=== PATIENT | male | born 1980 | race Two or more races ===

== ENCOUNTER → 2021-06-14 08:29 | Outpatient (BNVA) | payer SELFPAY | PROVIDERS: PCP Internal Medicine; Visit Provider Physician Assistant Medical | DX: Z02.79 Encounter for issue of other medical certificate (principal) ==

== ENCOUNTER → 2021-07-06 07:03 | Outpatient (REF) | payer OTHER, SELFPAY ==
--- NOTE | 2021-07-06 09:09 | HM_ITS ---
Total monitoring time 6 days and 23 hours. Underlying rhythm is sinus. Minimum heart rate 35/Min. Maximum 183/Min. Average 75/Min. Bradycardia 3.8%. Tachycardia 13.26%. No atrial fibrillation or flutter. No AV blocks or pauses. Very rare supraventricular ectopy with a burden of less than 0.01%. No patient events. MTDD
[2021-07-06 10:09] LABS: HIV AB/AG Nonreactive (Nonreactive); HIV Num 1 0.04 S/CO (0.00-0.99)
[2021-07-06 10:22] LABS: Syphilis Screen Nonreactive (Nonreactive)
== END ==
LOC: HO.CARD 07:03
PROVIDERS: PCP Internal Medicine; Visit Provider Internal Medicine
DX: R00.1 Bradycardia, unspecified (principal); R82.90 Unspecified abnormal findings in urine
CPT/HCPCS: 36415; 86780; 87389; 93242

== ENCOUNTER 2021-08-11 02:47 | Emergency (ER) | payer OTHER, SELFPAY ==
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
--- NOTE | ~2021-08-11 | XR_ITS ---
EXAMINATION: XR HAND, RIGHT CLINICAL INFORMATION: Thumb pain COMPARISON: None TECHNIQUE: PA, lateral, and oblique views of the right hand. FINDINGS: Osseous alignment is anatomic. No acute fracture is seen. No significant focal soft tissue abnormality identified. XR/XR hand RT 2V IMPRESSION: No acute findings identified.
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
[2021-08-11 02:51] VITALS: BP 131/85; PULSE 92; RESP 16; TEMP 36.6; O2SAT 100; BMI 32.0
[2021-08-11 02:55] VITALS: BP 127/81; PULSE 88; O2SAT 100
[2021-08-11 02:57] LABS: Glucose, Whole Blood 106 mg/dL (60-115)
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
[2021-08-11] MEDS: Ibuprofen 600 MG TABLET PO (03:49)
[2021-08-11 05:27] VITALS: BP 99/61; PULSE 63; RESP 16; O2SAT 98
== END 2021-08-11 05:43 | disposition home or self-care (01) ==
PROVIDERS: Emergency Provider Emergency Medicine; PCP Internal Medicine
DX: S10.93XA Contusion of unspecified part of neck, initial encounter (principal); G44.309 Post-traumatic headache, unspecified, not intractable; M54.2 Cervicalgia; M79.641 Pain in right hand; F12.90 Cannabis use, unspecified, uncomplicated; V43.52XA Car driver injured in collision with other type car in traffic accident, initial encounter; Y93.9 Activity, unspecified; Y92.410 Unspecified street and highway as the place of occurrence of the external cause; Y99.9 Unspecified external cause status; Z79.899 Other long term (current) drug therapy; Z87.891 Personal history of nicotine dependence
CPT/HCPCS: 70450; 72125; 73120; 82947; 99284

== ENCOUNTER → 2021-08-14 09:12 | Outpatient (BNVA) | payer OTHER, SELFPAY | PROVIDERS: PCP Internal Medicine; Referring Provider Internal Medicine; Visit Provider Internal Medicine | DX: G47.33 Obstructive sleep apnea (adult) (pediatric) (principal); R00.1 Bradycardia, unspecified; R53.83 Other fatigue; Z99.89 Dependence on other enabling machines and devices | CPT/HCPCS: 93005 ==

== ENCOUNTER 2024-06-22 14:28 | Outpatient (AMB) | payer OTHER, SELFPAY ==
[2024-06-22 14:36] VITALS: BP 118/74; PULSE 74; O2SAT 98; BMI 35.1
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
== END 2024-06-22 14:59 | disposition home or self-care (01) ==
PROVIDERS: PCP Internal Medicine; Visit Provider Nurse Practitioner Family
DX: M25.512 Pain in left shoulder (principal)
CPT/HCPCS: 99214

== ENCOUNTER 2024-06-22 15:03 | Outpatient (REF) | payer OTHER, SELFPAY ==
--- NOTE | ~2024-06-22 | XR_ITS ---
EXAMINATION: XR SHOULDER, LEFT CLINICAL INFORMATION: Left shoulder pain. COMPARISON: Left shoulder radiographs dated 01/18/2013. TECHNIQUE: AP external rotation, Grashey, scapular Y, and axillary views of the left shoulder. FINDINGS: Moderate acromioclavicular joint space narrowing with marginal osteophytes, new when compared to the prior examination. No glenohumeral joint space narrowing or marginal osteophytes. No fracture or dislocation. No osseous erosion. No abnormal soft tissue calcification. XR/XR shoulder LT min 2V IMPRESSION: Moderate acromioclavicular osteoarthritis, new when compared to the prior examination. Electronically signed by: Seth Rivera MD 06/28/2024 09:51 PM EDT
== END 2024-06-22 15:04 | disposition home or self-care (01) ==
LOC: HO.XRAY 15:03
PROVIDERS: PCP Internal Medicine; Visit Provider Nurse Practitioner Family
DX: M25.512 Pain in left shoulder (principal)
CPT/HCPCS: 73030

== ENCOUNTER 2024-07-02 10:32 | Outpatient (AMB) | payer OTHER, SELFPAY ==
[2024-07-02 10:40] VITALS: BP 126/78; PULSE 80; O2SAT 98; BMI 34.5
--- NOTE | 2024-07-02 10:40 | MHC.PC.OV ---
Vital Signs 07/02/24 10:40 Height 5 ft 9 in Weight 233 lb 6 oz BMI 34.5 BP 126/78 Blood Pressure Location Lt brachial Position Sitting Pulse 80 Pulse Source Pulse Oximeter Pulse Oximetry (%) 98 Oxygen Delivery Method Room Air Intake Visit Reasons: EDF [facility] 06/25 Shoulder Pain House Steward/Stewardess Required: No Accompanied by: Self / Same As Patient Allergies N.K.D.A. Allergy (Unknown, Uncoded 07/02/24 10:45) n/a Tobacco use date assessed: 06/22/24 Dental Screening Dental Screen Date: 06/22/24 HPI HPI Comments History of Present Illness Details 43 y/o male patient who presents to the clinic for ED follow up. Pt was admitted again at [facility] 06/25/24 and sicharged home the same day. Pt has been c/o persistent left shoulder pain radiating down to his hand associated with numbness/tingling of his left Index/middle fingers. I saw the patient 06/22/24 for ED follow up due to this left shoulder. He was given NSAIDs, Acetaminophen, Flexeril and Lido patches. Reports that the only thing that works in reducing his pain are the Lido patches. NSAIDs and Acetaminophen not helping at all. Flexeril has been helpful in assisting with sleeping at night time. PT referral was placed by me 06/22/24, so will f/u on this today. Discussed pain management and Orthopedics referrals. [facility] Medical History Moderate asthma Surgical History No pertinent past surgical history Family History Father No problems noted. Mother No problems noted. Social History Housing: Apartment Alcohol intake: never Patient Tobacco Use Status: Former Tobacco user Tobacco use type: Cigarette e-Cigarette/Vaping Use: Never Used Second Hand Smoke Exposure: No Substance Use Type: Marijuana service: No Current occupational status: employed Current occupational exposures/hazards: No Cognitive needs: No Hearing needs: No Vision needs: No (may need a referral) Questionnaire Thrive Questionnaire Date Thrive assessed: 06/22/24 CALIXTO-7 AMB Questionnaire CALIXTO-7 Date CALIXTO - 7 assessed: 06/22/24 Source: Developed by Drs. Robert White, Kandi Gee, Bhavin Arora and colleagues, with an educational jacqueline from [employer]. Physical exam (Primary Care) Vital Signs: Last Vital Signs Pulse 80 07/02/24 10:40 BP 126/78 07/02/24 10:40 Pulse Ox 98 07/02/24 10:40 Oxygen Delivery Method Room Air 07/02/24 10:40 BMI result Body Mass Index 34.5 Tobacco/Smoking Status: Tobacco use Status Tobacco use date assessed 06/22/24 07/02/24 10:44 Patient Tobacco Use Status Former Tobacco user 07/02/24 10:44 Tobacco use type Cigarette 07/02/24 10:44 e-Cigarette/Vaping Use Never Used 07/02/24 10:44 Thrive Assessment: Date of Thrive Assessment Date Thrive assessed 06/22/24 07/02/24 10:44 Const General: cooperative and no acute distress; No comfortable Nutritional Appearance: obese Orientation/consciousness: patient oriented x3 Neuro General: patient oriented x3, gait normal and moves all extremities Extrem Right upper extremity: normal to inspection and full ROM Left upper extremity: shoulder/upper arm Details: tenderness, axillary nerve sensory function normal and abnormal ROM Details: pain with active ROM and pain with passive ROM; no swelling, no ecchymosis and no crepitus and hand Details: normal to inspection, normal capillary refill, neuromotor exam normal, normal ROM of fingers and no swelling; no crepitus Psych Speech and movement: Normal speech and movement present Assessment and Plan Assessment & Plan (1) Osteoarthritis of left shoulder: Code(s): M19.012 - Primary osteoarthritis, left shoulder Qualifiers: Osteoarthritis type: primary Qualified Code(s): M19.012 - Primary osteoarthritis, left shoulder Plan: Ordered more Lidocaine patches Ordered Gabapentin 100 mg TID Will f/u on PT referral status Ordered referral for Pain management and Orthopedics. Ordered diclofenac, do not take together with Ibuprofen. Orders: Referrals Orthopedics Referral M19.012 - Primary osteoarthritis, left shoulder Pain Management Referral M19.012 - Primary osteoarthritis, left shoulder Medications: New lidocaine 5% leave on most painful area for up to 12 hrs 1 patch topical DAILY 30 ea 1RF M19.012 - Primary osteoarthritis, left shoulder gabapentin 100 mg PO TID 90 caps 0RF M19.012 - Primary osteoarthritis, left shoulder diclofenac potassium 50 mg PO DAILY 30 tabs 1RF M19.012 - Primary osteoarthritis, left shoulder Refilled acetaminophen 1,000 mg (2 x 500 mg) PO Q6H PRN 90 caps 1RF pain M25.512 - Pain in left shoulder Discontinued cyclobenzaprine Discontinued Reason: Patient no longer taking 10 mg PO BEDTIME 14 tabs 0RF M25.512 - Pain in left shoulder ibuprofen Discontinued Reason: Patient Completed Course 800 mg PO Q8H 60 tabs 0RF Pain M25.512 - Pain in left shoulder Coding Level of Care Code Est Pt Level 4 (28240) Diagnoses Primary osteoarthritis of left shoulder M19.012 Osteoarthritis type: primary Time Spent (min) 20 Comment Spent on reviewing notes, placing referral and patient education
== END 2024-07-02 11:10 | disposition home or self-care (01) ==
PROVIDERS: PCP Internal Medicine; Visit Provider Nurse Practitioner Family
DX: M19.012 Primary osteoarthritis, left shoulder (principal)
CPT/HCPCS: 99214

== ENCOUNTER 2024-09-15 10:46 | Outpatient (AMB) | payer OTHER, SELFPAY ==
--- NOTE | 2024-09-15 10:55 | A.OFFPC_ITS ---
Vital Signs 09/15/24 10:56 Height 5 ft 9 in Weight 230 lb BMI 34.0 BP 110/70 Blood Pressure Location Lt brachial Position Sitting Intake Visit Reasons: annual Intake Note: Patient here for a physical exam Car Pre Cooler Required: No Accompanied by: Self / Same As Patient Allergies N.K.D.A. Allergy (Unknown, Uncoded 09/15/24 11:19) n/a Medication List - Last Reconciled 09/15/24 by Amy Whyte MD albuterol sulfate 90 mcg/actuation 2 puffs inhalation Q6H PRN 30 days diclofenac potassium 50 mg PO DAILY lidocaine 5% 1 patch topical DAILY Tobacco use date assessed: 06/22/24 Dental Screening Dental Screen Date: 09/15/24 Did you have a dental visit in the last 12 months?: No Did you have a dental problem in the last 6 months where you did not have access to dental care?: No Was dental information given to patient?: Patient has dentist HPI HPI Comments History of Present Illness Details The patient is a 44-year-old male presenting for an annual physical examination. During the visit, he mentioned no medication allergies and confirmed the use of a daily asthma inhaler approximately three to four times, indicating uncontrolled symptoms. He has a previous history of shoulder pain for which he received a cortisone injection and attended physical therapy. The patient reported numbness in the shoulder area over the past two days and was instructed to follow up with physical therapy. His medication regimen includes diclofenac for pain management. The patient has a family history significant for colon cancer on the maternal side (grandmother) and cancer of unspecified type in the aunt, motivating his interest in a colonoscopy for cancer screening. He actively consumes alcohol, specifically hard liquor, at a frequency of approximately four times a week with a daily average consumption of three drinks. He also reported previous utilization of Neosporin for skin lesions, which have now resolved, although he expressed a desire to consult a running instructor in case of recurrence. The patient has expressed interest in an STD check, inquiring about his status as part of routine disease prevention. - Colonoscopy screening recommendation d iscussed due to family history of colon cancer. - Inquiry about flu vaccination; the pat ient declined. - Interest expressed in sexually transmi tted disease screening. [facility] Medical History (Updated 09/16/24 @ 09:40 by Amy Whyte MD) Fracture of transverse process of lumbar vertebra Skin lesion Physical exam Class 1 obesity with body mass index (BMI) of 33.0 to 33.9 in adult MARCIANO on CPAP Bradycardia Urine abnormality Moderate asthma Mild asthma Obesity (BMI 30.0-34.9) GERD (gastroesophageal reflux disease) Surgical History No pertinent past surgical history Family History (Updated 09/15/24 @ 11:25 by Amy Whyte MD) Father Colon cancer Mother Diabetes mellitus Essential hypertension Social History (Updated 09/15/24 @ 11:25 by Amy Whyte MD) Housing: Apartment Alcohol intake: current Alcohol intake frequency: a few times a week Alcohol type: hard liquor Patient Tobacco Use Status: Former Tobacco user Tobacco use type: Cigarette e-Cigarette/Vaping Use: Never Used Second Hand Smoke Exposure: No Substance Use Type: Marijuana service: No Current occupational status: employed Current occupational exposures/hazards: No Cognitive needs: No Hearing needs: No Vision needs: No (may need a referral) Questionnaire PHQ-9 Over the last 2 weeks, how often have you been bothered by any of the following problems? 1. Little interest or pleasure in doing things: not at all 2. Feeling down, depressed, or hopeless: not at all 3. Trouble falling or staying asleep, or sleeping too much: not at all 4. Feeling tired or having little energy: more than half the days 5. Poor appetite or overeating: several days 6. Feeling bad about yourself - or that you are a failure or have let yourself or your family down: not at all 7. Trouble concentrating on things, such as reading the newspaper or watching television: several days 8. Moving or speaking so slowly that other people could have noticed. Or the opposite - being so fidgety or restless that you have been moving around a lot more than usual: not at all 9. Thoughts that you would be better off or of hurting yourself in some way: not at all Total score: 4 Depression Screening Interpretation: Positive Depression Screening Follow-up: Existing condition, In treatment, Community Mental Health Worker F/U and Follow- up Visit Requested Depression Screening Done: Yes 67566 - PHQ-9 Billing: Yes Source: Developed by Drs. Robert White, Kandi Gee, Bhavin Arora and colleagues, with an educational jacqueline from [employer]. Thrive Questionnaire Date Thrive assessed: 06/22/24 I am a: Patient What is your living situation today?: I do not have a steady places to live I am temporarily staying with others Within the past 12 months, did the food you bought not last and you didn't have the money to get more?: Sometimes True Within the past 12 months, did you worry whether your food would run out before you got money to buy more?: Sometimes True Do you have trouble paying for medicines?: No Do you have trouble getting transportation to medical appointments?: No Do you have trouble paying your heating and electricity bill?: No Do you have trouble taking care of your child, family member or friend?: No Do you have trouble with day-to-day activities such as bathing, preparing meals, shopping, managing finances, etc.?: No Are you currently unemployed and looking for a job?: No Are you interested in more education?: Yes Please select the resources that you would like help with: None Currently or been in a relationship where the following occur: No concerns reported and I choose not to answer THRIVE Score: 3 AUDIT C Alcohol Use Questionnaire (AUDIT-C) 1. How often do you have a drink containing alcohol?: 2-4 times a month 2. How many drinks containing alcohol do you have on a typical day when you are drinking?: 3 or 4 3. How often do you have six or more drinks on one occasion?: Monthly Total Score: 5 CALIXTO-7 AMB Questionnaire CALIXTO-7 Date CALIXTO - 7 assessed: 06/22/24 Feeling nervous, anxious, or on edge: 0 = Not at all Not being able to stop or control worryin = Not at all Worrying too much about different things: 1 = Several days Trouble relaxin = Several days Being so restless that it is hard to sit still: 0 = Not at all Becoming easily annoyed or irritable: 0 = Not at all Feeling afraid as if something awful might happen: 0 = Not at all Total CALIXTO-7 score (0-4 normal; 5-9 mild; 10-14 moderate; 15-21 severe): 2 Source: Developed by Drs. Robert White, Kandi Gee, Bhavin Arora and colleagues, with an educational jacqueline from [employer]. CALIXTO-7 Assessment Billing CALIXTO-7 Assessment Tool: CALIXTO-7 Assessment 08296 Review of Systems Const All systems reviewed & are unremarkable except as noted in HPI and below Card Denies chest pain at rest, Denies chest pain with activity, Denies edema, Denies irregular heart rhythm, Denies claudication, Denies dyspnea, Denies dyspnea on exertion, Denies orthopnea, Denies paroxysmal nocturnal dyspnea and Denies slow heart rate Resp Denies cough, Denies dyspnea and Denies dyspnea on exertion Physical exam (Primary Care) Vital Signs: Last Vital Signs BP 110/70 09/15/24 10:56 BMI result Body Mass Index 34.0 BMI Assessment/Plan discussion: High BMI High, discussed plan: lifestyle, weight reduction, dietary and physical activity Tobacco/Smoking Status: Tobacco use Status Tobacco use date assessed 06/22/24 09/15/24 11:00 Patient Tobacco Use Status Former Tobacco user 09/15/24 11:25 Tobacco use type Cigarette 09/15/24 11:25 e-Cigarette/Vaping Use Never Used 09/15/24 11:25 PHQ-9: PHQ-9 Score PHQ-9: Total score 4 09/15/24 11:22 Depression Screening Interpretation: Positive Depression Screening Follow-up: Existing condition, In treatment, Community Mental Health Worker F/U and Follow- up Visit Requested Thrive Assessment: Date of Thrive Assessment Date Thrive assessed 06/22/24 09/15/24 11:00 Currently or been in a relationship where the following occur: No concerns reported and I choose not to answer HENMS Head: Yes normal to inspection, Yes normocephalic and Yes atraumatic Ears: external ears normal Eyes General: appearance normal, both eyes and all related structures Eyelids: Yes eyelids normal Conjunctivae: conjunctivae normal Neck Neck: Yes normal visual inspection and Yes supple Resp Effort & Inspection: normal respiratory effort Auscultation: clear to auscultation bilaterally Cardio Jugular venous distension: no JVD Rate: regular rate Rhythm: regular rhythm Heart sounds: S1 normal heart sound present and S2 normal heart sound present GI Inspection: Yes normal to inspection Palpation (GI): Soft to palpation and nontender Auscultation: normal bowel sounds Skin General skin exam: no rashes or lesions noted Neuro General: no focal motor deficits Extrem General: Yes full ROM Psych Appearance: grossly normal Office Procedures Flu Questionnaire Does the patient have a severe egg allergy?: No Immunizations Fluarix Triv [id number] (PF) 45 mcg (15 mcg x 3)/0.5 mL IM syringe Performing Provider: Amy Whyte MD [facility] Documented (not given) by: SYEDA Quesada on 09/15/24 11:01 Reason Not Given: Patient Refused Coding Level of Care Code Est Pt Level 3 (37422) Est Pt Prev Care 40-64y(74056) Diagnoses Physical exam Z00.00 Skin lesion L98.9 Moderate persistent asthma J45.40 Screen for STD (sexually transmitted disease) Z11.3 Additional Codes CALIXTO-7 Assessment Billing - CALIXTO-7 Assessment Tool: CALIXTO-7 Assessment 08215 ([id number]) PHQ-9 - 19772 - PHQ-9 Billing: Yes ([id number]) Assessment & Plan Assessment & Plan (1) Physical exam: Code(s): Z00.00 - Encounter for general adult medical examination without abnormal findings Category: Medical (2) Skin lesion: Code(s): L98.9 - Disorder of the skin and subcutaneous tissue, unspecified Category: Medical (3) Moderate persistent asthma: Code(s): J45.40 - Moderate persistent asthma, uncomplicated Category: Medical (4) Screen for STD (sexually transmitted disease): Code(s): Z11.3 - Encounter for screening for infections with a predominantly sexual mode of transmission Category: Medical Plan - Essential Hypertension: Continue monitoring and management. - Asthma: Plan to refill inhaler prescription and assess need for additional asthma management due to frequent inhaler use. - Colon Cancer Screening: Referral for a colonoscopy due to family history. - Alcohol Use Disorder: Continual assessment within counseling sessions. - Shoulder Pain: Follow up with physical therapy recommended to address recent numbness. - Dermatitis: Referral to dermatology if lesions reappear. Patient was informed and verbally consented to the use of an ambient scribe for clinic note documentation during this visit. I discussed with the patient the importance of a colonoscopy given his family history of colon cancer and advised scheduling the procedure for effective screening. Informed the patient that the frequent use of his asthma inhaler suggests suboptimal asthma control, and a review of his asthma management plan may be necessary. Recommended ongoing counseling for alcohol use and provided reassurance regarding skin lesions; however, referred to dermatology for further evaluation should symptoms recur. Discussed the patient's request for an STD check as a precautionary measure. Clarified the potential benefits of the flu vaccine, which the patient declined at this time. Follow-up and anticipatory guidance were provided, particularly concerning his shoulder numbness and potential exacerbation of asthma symptoms. Orders: Orders Influenza [id number] Immunization 09/15/24 Z23 - Encounter for immunization CT NG by PCR 09/15/24 Z11.3 - Encounter for screening for infections with a predominantly sexual mode of transmission HIV Ab/Ag 09/15/24 Z11.3 - Encounter for screening for infections with a predominantly sexual mode of transmission Hepatitis B,C Profile 09/15/24 Z11.3 - Encounter for screening for infections with a predominantly sexual mode of transmission Lipid Panel 09/15/24 E78.5 - Hyperlipidemia, unspecified Comprehensive [place]. Panel Fast 09/15/24 Z00.00 - Encounter for general adult medical examination without abnormal findings Syphilis Screen 09/15/24 Z11.3 - Encounter for screening for infections with a predominantly sexual mode of transmission Referrals Open Access Screening Colonoscopy Referral Z12.12 - Encounter for screening for malignant neoplasm of rectum Dermatology Referral L98.9 - Disorder of the skin and subcutaneous tissue, unspecified Pulmonology Referral J45.40 - Moderate persistent asthma, uncomplicated Medications: New fluticasone propion-salmeterol 55-14 mcg/actuation 1 inh inhalation BID 1 ea 2RF 30 days Refilled albuterol sulfate 90 mcg/actuation 2 puffs inhalation Q6H PRN 6.7 grams 2RF bronchospasm 30 days Patient Instructions: - Follow up with physical therapy for shoulder numbness and pain management. - Schedule a colonoscopy for colon cancer screening. - Consult with a running instructor if skin lesions reappear. - Continue counseling sessions for alcohol use and mental health support. - Monitor asthma symptoms and use inhaler as needed, seeking follow-up if symptoms persist. - Consider STD testing as part of disease prevention strategies. - Maintain medication regimen, including diclofenac and asthma inhaler.
[2024-09-15 10:56] VITALS: BP 110/70; BMI 34.0
== END 2024-09-15 11:45 | disposition home or self-care (01) ==
PROVIDERS: PCP Internal Medicine; Visit Provider Internal Medicine
DX: Z00.00 Encounter for general adult medical examination without abnormal findings (principal); L98.9 Disorder of the skin and subcutaneous tissue, unspecified; J45.40 Moderate persistent asthma, uncomplicated; Z11.3 Encounter for screening for infections with a predominantly sexual mode of transmission

== ENCOUNTER 2024-09-15 10:46 | Outpatient (REF) | payer OTHER, SELFPAY ==
[2024-09-15 12:55] LABS: Albumin Level 4.1 g/dL (3.5-5.0); Alkaline Phosphatase 60 U/L (39-117); Anion Gap 13 (12-20); Aspartate Amino Transferase 23 U/L (5-37); Bilirubin Total 0.4 mg/dL (0.0-1.0); Blood Urea Nitrogen 12 mg/dL (9-16); Calcium 8.9 mg/dL (8.4-10.2); Carbon Dioxide 27 mmol/L (22-29); Chloride 107 mmol/L (96-108); Cholesterol 199 mg/dL (<200); Estimated Glomerular Filt Rate > 60; Glucose Fasting 98 mg/dL (60-99); HDL Cholesterol 46 mg/dL (>40); LDL Cholesterol Calculated 130 mg/dL (<100); Potassium 4.2 mmol/L (3.3-5.1); Sodium 143 mmol/L (135-145); Total Protein 6.7 g/dL (6.5-8.0); Triglycerides 115 mg/dL (<150)
[2024-09-15 12:57] LABS: Alanine Aminotransferase 47 U/L (0-40)
== END 2024-09-15 10:47 | disposition home or self-care (01) ==
LOC: HO.LAB 10:46
PROVIDERS: PCP Internal Medicine; Visit Provider Internal Medicine
DX: Z00.00 Encounter for general adult medical examination without abnormal findings (principal); L98.9 Disorder of the skin and subcutaneous tissue, unspecified; J45.40 Moderate persistent asthma, uncomplicated; I10 Essential (primary) hypertension; J45.909 Unspecified asthma, uncomplicated; F10.90 Alcohol use, unspecified, uncomplicated; M25.519 Pain in unspecified shoulder; Z28.21 Immunization not carried out because of patient refusal
CPT/HCPCS: 36415; 80053; 80061; 90471; 96127; 99212; 99396

== ENCOUNTER 2024-10-19 10:00 | Outpatient (AMB) | payer OTHER, SELFPAY ==
--- NOTE | 2024-10-19 10:01 | MHC.OFFVIS ---
Vital Signs 10/19/24 10:02 Height 5 ft 9 in Weight 230 lb BMI 34.0 Intake Visit Reasons: Left shoulder pain and weakness, left hand numbness Intake Note: Eladio is a 44 year old male who presents with complaints of progressively worsening left shoulder pain and weakness as well as numbness in his left hand. The patient states that his symptoms have gotten worse over the last year in spite of continued non operative treatments. He states that the numbness involves mainly his thumb, index finger and middle finger. He reports weakness when lifting his left hand above shoulder height. He has failed the last 6 weeks of conservative treatment which has included topical creams, physical therapy exercises, Tylenol and anti-inflammatory medicines. He also reports intermittent neck pain. He did have a cortisone injection given into his left shoulder several months ago which gave him minimal relief. Allergies No Known Allergies Allergy (Verified 10/19/24 10:03) Medication List - Last Reconciled 10/19/24 by Kyle Montez MD albuterol sulfate 90 mcg/actuation 2 puffs inhalation Q6H PRN 30 days lidocaine 5% 1 patch topical DAILY methylprednisolone (Medrol (Geovanni)) PO PER [facility] Medical History (Updated 10/19/24 @ 10:26 by Kyle Montez MD) Fracture of transverse process of lumbar vertebra Skin lesion Physical exam Class 1 obesity with body mass index (BMI) of 33.0 to 33.9 in adult MARCIANO on CPAP Bradycardia Urine abnormality Moderate asthma Mild asthma Obesity (BMI 30.0-34.9) GERD (gastroesophageal reflux disease) Surgical History No pertinent past surgical history Family History (Updated 09/15/24 @ 11:25 by Amy Whyte MD) Father Colon cancer Mother Diabetes mellitus Essential hypertension Social History (Updated 09/15/24 @ 11:25 by Amy Whyte MD) Housing: Apartment Alcohol intake: current Alcohol intake frequency: a few times a week Alcohol type: hard liquor Patient Tobacco Use Status: Former Tobacco user Tobacco use type: Cigarette e-Cigarette/Vaping Use: Never Used Second Hand Smoke Exposure: No Substance Use Type: Marijuana service: No Current occupational status: employed Current occupational exposures/hazards: No Cognitive needs: No Hearing needs: No Vision needs: No (may need a referral) Physical Exam Vital Signs: BMI result Body Mass Index 34.0 Const Other: Well-nourished well-developed very friendly male awake alert and oriented x3 in no acute distress Extrem Other: Left wrist examination shows positive Tinel's test over his carpal tunnel, mild thenar muscle wasting, decreased sensation to light touch along his median nerve distribution Left shoulder examination shows slightly decreased range of motion when compared to his right shoulder, 4+ out of 5 strength with supraspinatus testing, positive impingement signs, no instability Results Reviewed Results Reviewed: x-rays of the patient's left shoulder show severe acromioclavicular joint narrowing, a type 2 acromion, no acute bony abnormalities Assessment & Plan Assessment & Plan (1) Left carpal tunnel syndrome: Code(s): G56.02 - Carpal tunnel syndrome, left upper limb Category: Medical (2) Left shoulder pain: Code(s): M25.512 - Pain in left shoulder Category: Medical Plan Eladio Presents with progressively worsening left shoulder pain and weakness due to impingement syndrome and possible rotator cuff tearing. Thus, I will send the patient for an MRI of his left shoulder for further evaluation. The patient also has numbness and tingling in his left hand most likely due to carpal tunnel syndrome. I will send him for nerve conduction studies to help evaluate him for possible carpal tunnel syndrome. I will see him back once the studies are completed. Feel free to call me at any time should questions regarding his orthopedic management arise. Thank you very much for asking me to see this very friendly gentleman. I spent 21 minutes in reviewing the patient's records and imaging studies, seeing the patient and documenting in the medical record. Orders: Orders NE electromyogram (EMG) Today G56.02 - Carpal tunnel syndrome, left upper limb MR shoulder LT wo con Today M25.512 - Pain in left shoulder Medications: New methylprednisolone (Medrol (Geovanni)) PO PER PKG DIR 21 ea 0RF Coding Level of Care Code New Pt Level 3 (98319) Complex EM visit Add On G2211 Diagnoses Left carpal tunnel syndrome G56.02 Left shoulder pain M25.512
[2024-10-19 10:02] VITALS: BMI 34.0
== END 2024-10-19 10:23 | disposition home or self-care (01) ==
PROVIDERS: PCP Internal Medicine; Visit Provider Orthopaedic Surgery
DX: G56.02 Carpal tunnel syndrome, left upper limb (principal); M25.512 Pain in left shoulder
CPT/HCPCS: 99203; G2211

== ENCOUNTER → 2024-10-19 10:00 | Outpatient (BNVA) | payer OTHER, SELFPAY | PROVIDERS: PCP Internal Medicine; Visit Provider Orthopaedic Surgery | DX: M25.512 Pain in left shoulder (principal); R20.0 Anesthesia of skin; R20.2 Paresthesia of skin | CPT/HCPCS: 99202 ==

== ENCOUNTER 2024-10-25 08:01 | Outpatient (REF) | payer OTHER, SELFPAY ==
--- NOTE | ~2024-10-25 | MR_ITS ---
CLINICAL HISTORY: M25.512 - Pain in left shoulder MR left shoulder without contrast Comparison: None Findings: No fracture or dislocation of the osseous structures. Marrow signal is within normal limits. Mild degenerative change of the acromioclavicular joint with joint space narrowing, osteophytosis and subchondral cystic change. No joint effusion or fluid in the subacromial/subdeltoid bursa. There is increased signal in the supraspinatus and infraspinatus tendons without tear, retraction or significant muscular atrophy. The subscapularis and teres minor muscles and their tendinous insertions are intact. Unremarkable labrum and cartilage. The biceps tendon and bicipital-labral anchor are normal. The coracoacromial and coracohumeral ligaments are intact. Cutaneous and subcutaneous tissues are normal. The quadrilateral space is unremarkable. Impression: Supraspinatus and infraspinatus tendinopathy. This document has been electronically signed by: Melissa Donald MD on 10/26/2024 16:04:52
[2024-10-25 10:26] LABS: MANUAL DIFF FLAG NO
[2024-10-25 10:49] LABS: Basophils Percent Auto 0.5 % (0-2); Eosinophils Absolute Auto 0.4 X10*3/uL (0.0-0.4); Eosinophils Percent Auto 4.5 % (0-4); Hematocrit 43.6 % (42.0-52.0); Hemoglobin 14.1 g/dl (14.0-18.0); Imm Gran Abs Auto 0.04 X10*3/uL (0.00-0.03); Imm Gran Pct Auto 0.5 % (0.0-0.4); Lymphocytes Absolute Auto 2.7 X10*3/uL (1.2-4.9); Lymphocytes Percent Auto 34.5 % (20-40); Mean Corpuscular HGB Conc 32.3 g/dl (31.0-36.0); Mean Corpuscular Hemoglobin 29.4 pg (27.0-33.0); Mean Corpuscular Volume 90.8 fL (80.0-98.0); Mean Platelet Volume 10.6 fL (9.4-12.4); Monocytes Absolute Auto 0.5 X10*3/uL (0.1-1.2); Monocytes Percent Auto 6.1 % (2-11); Neutrophils Absolute Auto 4.2 x10*3/uL (2.0-8.3); Neutrophils Percent Auto 53.9 % (45-73); Platelet Count 272 X10*3/uL (160-400); Red Cell Distribution Width 13.5 % (11.0-16.0); White Blood Count 7.7 X10*3/uL (4.8-10.8)
[2024-10-26 23:08] LABS: Class Alternaria alternata 1; Class Aspergillus fumigatus 2; Class Bermuda Grass 0/1; Class Birch 0/1; Class Cat Dander 2; Class Cladosporium herbarum 2; Class Cockroach 2; Class Common Ragweed 0/1; Class Cottonwood 0; Class Derm. pterony 3; Class Dermatophagoides farinae 3; Class Dog Dander 2; Class Elm 0/1; Class Maple Box Elder 0; Class Mountain Cedar 0/1; Class Mouse Urine Protein 0; Class Mugwort 0; Class Oak 0/1; Class Penicillium crysogenum 0/1; Class Rough Pigweed 1; Class Sheep Sorrel 0; Class Sycamore 1; Class Timothy Grass 2; Class Walnut Tree 0/1; Class White Ash 0/1; Class White Mulberry 0; D001 IgE D pteronyssinus 6.34 kU/L; D002 - IgE D farinae 8.71 kU/L; E001 - IgE Cat Dander 2.15 kU/L; E072-IgE Mouse Urine <0.10 kU/L; G002 IgE Bermuda Grass 0.12 kU/L; G006 - IgE Timothy Grass 2.63 kU/L; Immunoglobulin E 219 kU/L (<OR=114); M001 IgE Penicillium chrysogen 0.33 kU/L; M002 - IgE Cladosporium herbar 0.98 kU/L; M003 - IgE Aspergillus fumigat 1.41 kU/L; M006 - IgE Alternaria alternat 0.44 kU/L; T001 IgE Maple/Box Elder <0.10 kU/L; T003 IgE Common Silver Birch 0.19 kU/L; T006 - IgE Cedar, Mountain 0.12 kU/L; T007 - IgE Oak, White 0.31 kU/L; T008 IgE Elm, American 0.28 kU/L; T010 - IgE Walnut 0.13 kU/L; T011 - IgE Maple Leaf Sycamore 0.56 kU/L; T014 - IgE Cottonwood <0.10 kU/L; T015 - IgE Ash, White 0.12 kU/L; T070 - IgE White Mulberry <0.10 kU/L; W006 - IgE Mugwort <0.10 kU/L; W014 IgE Pigweed, Common 0.38 kU/L; W018 IgE Sheep Sorrel <0.10 kU/L
== END 2024-10-25 08:02 | disposition home or self-care (01) ==
LOC: HO.LAB 08:01
PROVIDERS: PCP Internal Medicine; Referring Provider Internal Medicine; Visit Provider Nurse Practitioner Family
DX: M25.512 Pain in left shoulder (principal); Z91.09 Other allergy status, other than to drugs and biological substances; J45.909 Unspecified asthma, uncomplicated; R40.0 Somnolence; R06.83 Snoring
CPT/HCPCS: 36415; 73221; 82785; 85025; 86003; 99202

== ENCOUNTER 2024-10-25 08:01 | Outpatient (AMB) | payer OTHER, SELFPAY ==
--- NOTE | 2024-10-25 08:29 | MHC.OFFVIS ---
Vital Signs 10/25/24 08:38 Height 5 ft 9 in Weight 229 lb 4.492 oz BMI 33.9 BP 128/70 Blood Pressure Location Rt brachial Position Sitting Pulse 72 Pulse Source Pulse Oximeter Pulse Oximetry (%) 99 Oxygen Delivery Method Room Air Intake Visit Reasons: asthma Damascener Required: No Printer'S Devil: Printer'S Devil offered & declined Accompanied by: Self / Same As Patient Allergies No Known Allergies Allergy (Verified 10/25/24 08:43) Medication List - Last Reconciled 10/25/24 by Jess Suh LPN albuterol sulfate 90 mcg/actuation 2 puffs inhalation Q6H PRN 30 days lidocaine 5% 1 patch topical DAILY methylprednisolone (Medrol (Geovanni)) PO PER PKG DIR HPI HPI asthma: Details: Eladio is a pleasant 44 year old male, former smoker, quit 2009, with 40 pack year history with underlying asthma, GERD and MARCIANO not on CPAP. He was referred by PCP for pulmonary evaluation as he has worsening control of asthma. He reports using albuterol MDI using 3-4 times daily for the last few years. PCP recently prescribed low dose ICS/LABA however patient unaware of prescription therefore never started. He reports asthma is triggered by moderate activity with associated dyspnea, dry cough, chest tightness and wheezing. He reports asthma dx as a child, intubated in 2007 due to respiratory distress, unknown childhood intubations. He is unsure of seasonal allergies, symptoms have been triggered by dogs in the past and h/o seasonal allergies as a child. He denies recent allergy testing. 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 He reports mother and sister with asthma. CXR 05/[address] 2021, unremarkable. He reports h/o MARCIANO dx years ago, has a CPAP machine at home however has not used in years. Last sleep study >5 years ago, believes prior [facility]. He continues with nonrestorative sleep, daytime fatigue, loud snoring and paroxysmal nocturnal dyspnea. He is interested in restarting CPAP therapy. [facility] Medical History (Updated 10/25/24 @ 09:18 by Jess Rosas NP) Fracture of transverse process of lumbar vertebra Skin lesion Physical exam Class 1 obesity with body mass index (BMI) of 33.0 to 33.9 in adult MARCIANO on CPAP Bradycardia Urine abnormality Moderate asthma Mild asthma Obesity (BMI 30.0-34.9) GERD (gastroesophageal reflux disease) Surgical History No pertinent past surgical history Family History (Updated 09/15/24 @ 11:25 by Amy Whyte MD) Father Colon cancer Mother Diabetes mellitus Essential hypertension Social History (Updated 10/25/24 @ 08:46 by Jess Suh LPN) Housing: Apartment Alcohol intake: current Alcohol intake frequency: a few times a week Alcohol type: hard liquor Patient Tobacco Use Status: Former Tobacco user Tobacco use type: Cigarette Cigarette Packs Per Day: 2 Years Smoked: 20 years Started at age 9. Quit in 2009. e-Cigarette/Vaping Use: Never Used Second Hand Smoke Exposure: No Substance Use Type: Marijuana service: No Current occupational status: employed Current occupational exposures/hazards: No Cognitive needs: No Hearing needs: No Vision needs: No (may need a referral) Review of Systems Const Denies chills, Denies excessive sweating, Denies fever(s), Denies headache(s) and Denies night sweats Eyes Denies dry eyes, Denies irritation and Denies itchy eyes ENT Reports Normal hearing present, Denies headache(s), Denies nasal congestion, Denies nasal discharge, Denies post nasal drip and Denies sore throat Card Denies chest pain, Denies chest pain at rest, Denies chest pain with activity, Denies claudication, Denies leg edema and Denies orthopnea Resp Denies chest congestion, Denies excessive phlegm production, Denies pain on inspiration, Denies pain with cough and Denies stridor Musc Denies myalgias Neuro Reports Normal hearing present and Denies headache(s) Endo Denies excessive sweating Bryan/Lymph Denies lymphadenopathy Aller/Immun Denies itchy eyes and Denies seasonal rhinorrhea Physical Exam Vital Signs: Last Vital Signs Pulse 72 10/25/24 08:38 BP 128/70 10/25/24 08:38 Pulse Ox 99 10/25/24 08:38 Oxygen Delivery Method Room Air 10/25/24 08:38 BMI result Body Mass Index 33.9 Const General: cooperative, healthy appearing, comfortable, no acute distress, well developed and alert Nutritional Appearance: obese Orientation/consciousness: patient oriented x3 Limitations: no limitations HEENT Head: Yes normal to inspection, Yes normocephalic and Yes atraumatic Ears: hearing grossly normal bilaterally and external ears normal Eyes General: appearance normal, both eyes and all related structures Eyelids: Yes eyelids normal Sclerae: sclerae normal EOM: EOMs intact bilaterally Neck Neck: Yes normal visual inspection and Yes no lymphadenopathy Lymphatic: no lymphadenopathy noted Chest Chest palpation & inspection: normal inspection of the chest Resp Effort & Inspection: normal respiratory effort, able to speak in complete sentences, no audible wheezes, no cough, no stridor, not tachypneic, no tripod positioning and no use of accessory muscles Auscultation: clear to auscultation bilaterally Cardio Jugular venous distension: no JVD Rate: regular rate Rhythm: regular rhythm Skin Other: warm, dry General skin exam: no rashes or lesions noted Neuro General: patient oriented x3 Cranial nerves: Yes Normal hearing present Cognition (Neuro): normal cognition Gait exam (Neuro): Normal gait present Extrem General: Yes normal to inspection, Yes capillary refill normal, Yes no clubbing, cyanosis or edema and Yes no pedal edema Psych Appearance: grossly normal and well kempt Speech and movement: Normal speech and movement present and Clear speech present Affect: normal affect Attitude: cooperative Thought process: Normal thought process present Thought content: Normal thought content present Insight: Good insight present (Psych) Judgement: Good judgement present (Psych) Assessment & Plan Assessment & Plan (1) Asthma: Code(s): J45.909 - Unspecified asthma, uncomplicated Category: Medical (2) Environmental allergies: Code(s): Z91.09 - Other allergy status, other than to drugs and biological substances Category: Medical (3) Daytime somnolence: Code(s): R40.0 - Somnolence Category: Medical (4) Loud snoring: Code(s): R06.83 - Snoring Category: Medical Plan Eladio presents for pulmonary evaluation for worsening asthma control. Will empirically start Breo. Discussed importance of good oral hygiene. He is aware to call office if unable to obtain. Will send for PFT and RAST, may have allergic component. Patient reports prior h/o MARCIANO and continues with symptoms, will send for home sleep study. All questions were answered and patient is in agreement of plan. Will follow up in 6-8 weeks or sooner if needed. Orders: Orders Resp Allergy Profile Region I Today Z91.09 - Other allergy status, other than to drugs and biological substances Immunoglobulin E Today Z91.09 - Other allergy status, other than to drugs and biological substances Complete Blood Count Auto Diff Today Z91.09 - Other allergy status, other than to drugs and biological substances PFT pulmonary function test Today J45.909 - Unspecified asthma, uncomplicated RT home sleep study Today R06.83 - Snoring, R40.0 - Somnolence Medications: New fluticasone furoate-vilanterol 100-25 mcg/dose (Breo Ellipta) 1 inh inhalation DAILY 60 ea 6RF Coding Level of Care Code New Pt Level 4 (83694) Diagnoses Asthma J45.909 Environmental allergies Z91.09 Daytime somnolence R40.0 Loud snoring R06.83
[2024-10-25 08:38] VITALS: BP 128/70; PULSE 72; O2SAT 99; BMI 33.9
== END 2024-10-25 09:22 | disposition home or self-care (01) ==
PROVIDERS: PCP Internal Medicine; Referring Provider Internal Medicine; Visit Provider Nurse Practitioner Family
DX: J45.909 Unspecified asthma, uncomplicated (principal); Z91.09 Other allergy status, other than to drugs and biological substances; R40.0 Somnolence; R06.83 Snoring
CPT/HCPCS: 99204

== ENCOUNTER → 2024-10-25 09:54 | Outpatient (BNV) | payer OTHER, SELFPAY | PROVIDERS: PCP Internal Medicine; Referring Provider Internal Medicine; Visit Provider Radiology Diagnostic Radiology | DX: M25.512 Pain in left shoulder (principal) | CPT/HCPCS: 73221 ==

== ENCOUNTER → 2024-12-01 09:55 | Outpatient (REF) | payer OTHER, SELFPAY ==
--- OUTSIDE RECORDS SUMMARY | 2024-12-01 11:34 | XMS_ITS | Clinical Summary ---
Author Organization [facility] ity Address [address] [place] [address] Care Team Providers Care Talent Director Name Role Phone Unavailable Primary Care Provider Unavailabl e Social History Tobacco Use Types Packs/Day Years Used Date Smoking Tobacco: Never Assessed Sex and Gender Information Value Date Recorded Sex Assigned at Not on file Legal Sex Male 10:51 AM EST Gender Identity Not on file Sexual Orientation Not on file Plan of Treatment Health Maintenance Due Date Last Done Comments DTaP,Tdap,and Td Vaccines (1 - Tdap) 1997 Hepatitis B Vaccines (1 of 3 - 19+ 3-dose series) 1997 COVID-19 Vaccine (2023-2 5 season) 2024 Influenza Vaccine (#1) 2024 Cholesterol Screening (Lipid Panel) 08/14/2024 Colorectal Cancer Screening: Colonoscopy 08/14/2024 Depression Screening 08/14/2024 HIV Screening 08/14/2024 Hepatitis C Screening 08/14/2024 Social Influencers of Health Screening 08/14/2024 HIB Vaccines Aged Out No longer eligi ble based on patient's age to complete this topic HPV Vaccines Aged Out No longer eligi ble based on patient's age to complete this topic Hepatitis A Vaccines Aged Out No long er eligible based on patient's age to complete this topic IPV Vaccines Aged Out No longer eligi ble based on patient's age to complete this topic MMR Vaccines Aged Out No longer eligi ble based on patient's age to complete this topic Meningococcal ACWY Vaccine Aged Out N o longer eligible based on patient's age to complete this topic Meningococcal B Vacine Aged Out No lo nger eligible based on patient's age to complete this topic Pneumococcal Vaccine: Pediat rics (0 to 5 Years) and At-Risk Patients (6 to 64 Years) Aged Out No longer eligible b ased on patient's age to complete this topic RSV Immunization Patients Un darrell 20 months Aged Out No longer eligible b ased on patient's age to complete this topic Varicella Vaccines Aged Out No longer eligible based on patient's age to complete this topic
== END ==
LOC: HO.SL 09:55
PROVIDERS: PCP Internal Medicine; Visit Provider Nurse Practitioner Family
DX: R40.0 Somnolence (principal); R06.83 Snoring
CPT/HCPCS: 95806

== ENCOUNTER → 2024-12-08 10:34 | Outpatient (BNV) | payer OTHER, SELFPAY | PROVIDERS: PCP Internal Medicine; Visit Provider Internal Medicine | DX: G47.33 Obstructive sleep apnea (adult) (pediatric) (principal) | CPT/HCPCS: 95806 ==

== ENCOUNTER 2025-04-07 09:29 | Outpatient (AMB) | payer OTHER, SELFPAY ==
[2025-04-07 09:32] VITALS: BMI 33.8
--- NOTE | 2025-04-07 09:32 | A.OFFVIS_ITS ---
Vital Signs 04/07/25 09:32 Height 5 ft 9 in Weight 229 lb BMI 33.8 Intake Visit Reasons: OV-Lt shoulder MRI review Intake Note: Eladoi is a 44 year old male who presents today for a MRI review of the left shoulder. The patient reports mild to moderate intermittent discomfort in his left shoulder. He did have a cortisone injection given into his left shoulder last August which gave him fairly good relief. He denies any weakness. He has tried Tylenol and anti-inflammatory medicines which gave him mild relief. Allergies No Known Allergies Allergy (Verified 04/07/25 09:32) Medication List - Last Reconciled 04/07/25 by Kyle Montez MD albuterol sulfate 90 mcg/actuation 2 puffs inhalation Q6H PRN 30 days fluticasone furoate-vilanterol 100-25 mcg/dose (Breo Ellipta) 1 inh inhalation DAILY lidocaine 5% 1 patch topical DAILY methylprednisolone (Medrol (Geovanni)) PO PER [facility] Medical History (Updated 04/07/25 @ 09:47 by Kyle Montez MD) Fracture of transverse process of lumbar vertebra Skin lesion Physical exam Class 1 obesity with body mass index (BMI) of 33.0 to 33.9 in adult MARCIANO on CPAP Bradycardia Urine abnormality Moderate asthma Mild asthma Obesity (BMI 30.0-34.9) GERD (gastroesophageal reflux disease) Surgical History No pertinent past surgical history Family History (Updated 09/15/24 @ 11:25 by Amy Whyte MD) Father Colon cancer Mother Diabetes mellitus Essential hypertension Social History (Updated 10/25/24 @ 08:46 by Jess Suh LPN) Housing: Apartment Alcohol intake: current Alcohol intake frequency: a few times a week Alcohol type: hard liquor Patient Tobacco Use Status: Former Tobacco user Tobacco use type: Cigarette Cigarette Packs Per Day: 2 Years Smoked: 20 years Started at age 9. Quit in 2009. e-Cigarette/Vaping Use: Never Used Second Hand Smoke Exposure: No Substance Use Type: Marijuana service: No Current occupational status: employed Current occupational exposures/hazards: No Cognitive needs: No Hearing needs: No Vision needs: No (may need a referral) Physical Exam Vital Signs: BMI result Body Mass Index 33.8 Const Other: Well-nourished well-developed very friendly male awake alert and oriented x3 in no acute distress Extrem Other: Bilateral upper extremity examination shows good capillary refill, no skin lesions noted, normal sensation light touch Left shoulder examination shows decreased range of motion when compared to his right shoulder, 5/5 strength with supraspinatus testing, positive impingement signs, no instability Results Reviewed Results Reviewed: MRI of the patient's left shoulder show severe acromioclavicular joint narrowing, a type 3 acromion, signal change within the supraspinatus tendon most likely due to adhesive capsulitis Assessment & Plan Assessment & Plan (1) Impingement syndrome of left shoulder: Code(s): M75.42 - Impingement syndrome of left shoulder Category: Medical Plan Eladio presents with left shoulder pain and stiffness due to impingement syndrome, acromioclavicular joint arthritis and adhesive capsulitis. I had a lengthy discussion with the patient regarding the treatment options. At this point the patient's symptoms are tolerable to him. He will continue with his home stretching program to prevent further stiffness. He will follow up with me on an as-needed basis should his symptoms worsen in any way. Feel free to call me at any time should questions regarding his orthopedic management arise. I spent 22 minutes in reviewing the patient's records and imaging studies, seeing the patient and documenting in the medical record. Coding Level of Care Code Est Pt Level 3 (91839) Complex EM visit Add On G2211 Diagnoses Impingement syndrome of left shoulder M75.42
--- OUTSIDE RECORDS SUMMARY | 2025-04-07 10:18 | XMS_ITS | Clinical Summary ---
Author Organization [facility] ity Address [address] [place] [address] Care Team Providers Care System Support Specialist Name Role Phone Unavailable Primary Care Provider [...] 1997 COVID-19 Vaccine (2023-2 5 season) 2024 Cholesterol Screening (Lipid Panel) 08/14/2024 Colorectal Cancer Screening: Colonoscopy 08/14/2024 Depression Screening 08/14/2024 HIV Screening 08/14/2024 Hepatitis C Screening 08/14/2024 Social Influencers of Health Screening 08/14/2024 Influenza Vaccine (Season Ended) 2025 HIB Vaccines Aged Out No longer eligi [...] age to complete this topic Meningococcal B Vaccine Aged Out No l onger eligible based on patient's age to complete [...]
== END 2025-04-07 09:45 | disposition home or self-care (01) ==
LOC: HO.HOS 09:30
PROVIDERS: PCP Internal Medicine; Visit Provider Orthopaedic Surgery
DX: M75.42 Impingement syndrome of left shoulder (principal)
CPT/HCPCS: 99213; G2211

== ENCOUNTER → 2025-04-07 09:29 | Outpatient (BNVA) | payer OTHER, SELFPAY | PROVIDERS: PCP Internal Medicine; Visit Provider Orthopaedic Surgery | DX: M75.42 Impingement syndrome of left shoulder (principal); M25.512 Pain in left shoulder | CPT/HCPCS: 99212 ==

== ENCOUNTER 2025-05-26 10:42 | Outpatient (REF) | payer OTHER, SELFPAY ==
--- NOTE | 2025-05-26 10:52 | PFT_ITS ---
Flows: FEV1: 73 % of predicted at 2.83 L FVC: 87 % of predicted at 4.25 L FEV1/FVC: 67 % Bronchodilator response: Present Volumes: Total lung capacity: 82 % of predicted at 5.70 L Residual volume: 89 % of predicted at 1.51 L Slow vital capacity: 79 % of predicted at 4.19 L Expiratory reserve volume: 0 % of predicted at 0 L Diffusion capacity: Normal Impression: Moderate obstructive ventilatory defect with positive bronchodilator response. Decreased expiratory reserve volume suggests extrathoracic restriction likely secondary to abdominal obesity. MTDD
--- OUTSIDE RECORDS SUMMARY | 2025-05-26 11:23 | XMS_ITS | Clinical Summary ---
Author Organization [facility] ity Address [address] [place] [address] Care Team Providers Care Stone Processing Machine Operator Name Role Phone Unavailable Primary Care Provider [...] Panel) 08/14/2024 Colorectal Cancer Screening: Colonoscopy 08/14/2024 HIV Screening 08/14/2024 Hepatitis C Screening 08/14/2024 Social Influencers of Health Screening 08/14/2024 Depression Screening 10/20/2024 Influenza Vaccine (#1) 2025 HIB Vaccines Aged Out No longer [...] 5 Years) and At-Risk Patients (6 to 49 Years) Aged Out No longer eligible b ased on patient's age to complete this topic RSV Immunization Patients Un darrell 20 months Aged Out No longer eligible b ased on patient's age to complete this topic Varicella Vaccines Aged Out No longer eligible based on patient's age to complete this topic
[2025-05-26 11:31] VITALS: PULSE 55; O2SAT 98
== END 2025-05-26 10:43 | disposition home or self-care (01) ==
LOC: HO.RESP 10:42
PROVIDERS: PCP Internal Medicine; Visit Provider Nurse Practitioner Family
DX: J45.909 Unspecified asthma, uncomplicated (principal); Z87.891 Personal history of nicotine dependence
CPT/HCPCS: 94010; 94640; 94727; 94729

== ENCOUNTER → 2025-05-26 10:52 | Outpatient (BNV) | payer OTHER, SELFPAY | PROVIDERS: PCP Internal Medicine; Visit Provider Internal Medicine Pulmonary Disease | DX: J45.909 Unspecified asthma, uncomplicated (principal) | CPT/HCPCS: 94060; 94727; 94729 ==

== ENCOUNTER 2025-05-30 10:46 | Outpatient (AMB) | payer OTHER, SELFPAY ==
--- NOTE | 2025-05-30 10:49 | A.OFFVIS_ITS ---
Vital Signs 3 05/30/25 10:52 Height 5 ft 9 in Weight 221 lb 9.033 oz BMI 32.7 BP 110/86 Blood Pressure Location Rt brachial Position Sitting Pulse 81 Pulse Source Pulse Oximeter Pulse Oximetry (%) 97 Oxygen Delivery Method Room Air Intake Visit Reasons: asthma Allergies No Known Allergies Allergy (Verified 05/30/25 10:56) HPI HPI asthma: Details: Eladio is a pleasant 44 year old male, former 40 pack year smoker, quit 10 years history with underlying asthma, GERD and MARCIANO not on CPAP. Since the last visit, Eladio has been maintained on Breo with excellent control of respiratory symptoms. Previously he was using albuterol MDI mulitple times per day however has not required since initiating Breo. He reports increased activity tolerance since Breo and currently denies any respiratory symptoms. Today he presents to review PFT, RAST and home sleep study. [facility] Medical History (Updated 05/30/25 @ 12:40 by Jess Rosas NP) Fracture of transverse process of lumbar vertebra Skin lesion Physical exam Class 1 obesity with body mass index (BMI) of 33.0 to 33.9 in adult MARCIANO on CPAP Bradycardia Urine abnormality Moderate asthma Mild asthma Obesity (BMI 30.0-34.9) GERD (gastroesophageal reflux disease) Surgical History No pertinent past surgical history Family History (Updated 09/15/24 @ 11:25 by Amy Whyte MD) Father Colon cancer Mother Diabetes mellitus Essential hypertension Social History Housing: Apartment Alcohol intake: current Alcohol intake frequency: a few times a week Alcohol type: hard liquor Patient Tobacco Use Status: Former Tobacco user Tobacco use type: Cigarette Cigarette Packs Per Day: 2 Years Smoked: 20 years Started at age 9. Quit in 2009. e-Cigarette/Vaping Use: Never Used Second Hand Smoke Exposure: No Substance Use Type: Marijuana service: No Current occupational status: employed Current occupational exposures/hazards: No Cognitive needs: No Hearing needs: No Vision needs: No (may need a referral) Review of Systems Const Denies chills, Denies excessive sweating, Denies fever(s), Denies headache(s) and Denies night sweats Eyes Denies dry eyes, Denies irritation and Denies itchy eyes ENT Reports Normal hearing present, Denies headache(s), Denies nasal congestion, Denies nasal discharge, Denies post nasal drip and Denies sore throat Card Denies chest pain, Denies chest pain at rest, Denies chest pain with activity, Denies claudication, Denies leg edema, Denies dyspnea, Denies dyspnea on exertion, Denies orthopnea and Denies paroxysmal nocturnal dyspnea Resp Denies chest congestion, Denies cough, Denies excessive phlegm production, Denies pain on inspiration, Denies pain with cough, Denies dyspnea, Denies dyspnea on exertion, Denies stridor and Denies wheezing Musc Denies myalgias Neuro Reports Normal hearing present and Denies headache(s) Endo Denies excessive sweating Bryan/Lymph Denies lymphadenopathy Aller/Immun Denies itchy eyes, Denies seasonal rhinorrhea and Denies wheezing Physical Exam Vital Signs: Last Vital Signs Pulse 81 05/30/25 10:52 BP 110/86 05/30/25 10:52 Pulse Ox 97 05/30/25 10:52 Oxygen Delivery Method Room Air 05/30/25 10:52 BMI result Body Mass Index 32.7 Const General: cooperative, healthy appearing, comfortable, no acute distress, well developed and alert Nutritional Appearance: obese Orientation/consciousness: patient oriented x3 Limitations: no limitations HEENT Head: Yes normal to inspection, Yes normocephalic and Yes atraumatic Ears: hearing grossly normal bilaterally and external ears normal Eyes General: appearance normal, both eyes and all related structures Eyelids: Yes eyelids normal Sclerae: sclerae normal EOM: EOMs intact bilaterally Neck Neck: Yes normal visual inspection and Yes no lymphadenopathy Lymphatic: no lymphadenopathy noted Chest Chest palpation & inspection: normal inspection of the chest Resp Effort & Inspection: normal respiratory effort, able to speak in complete sentences, no audible wheezes, no cough, no stridor, not tachypneic, no tripod positioning and no use of accessory muscles Auscultation: clear to auscultation bilaterally Cardio Jugular venous distension: no JVD Rate: regular rate Rhythm: regular rhythm Skin Other: warm, dry General skin exam: no rashes or lesions noted Neuro General: patient oriented x3 Cranial nerves: Yes Normal hearing present Cognition (Neuro): normal cognition Gait exam (Neuro): Normal gait present Extrem General: Yes normal to inspection, Yes capillary refill normal, Yes no clubbing, cyanosis or edema and Yes no pedal edema Psych Appearance: grossly normal and well kempt Speech and movement: Normal speech and movement present and Clear speech present Affect: normal affect Attitude: cooperative Thought process: Normal thought process present Thought content: Normal thought content present Insight: Good insight present (Psych) Judgement: Good judgement present (Psych) Results Reviewed Results Reviewed: Assessment & Plan Assessment & Plan (1) Asthma-COPD overlap syndrome: Code(s): J44.89 - Other specified chronic obstructive pulmonary disease Category: Medical (2) Environmental allergies: Code(s): Z91.09 - Other allergy status, other than to drugs and biological substances Category: Medical (3) Obstructive sleep apnea: Code(s): G47.33 - Obstructive sleep apnea (adult) (pediatric) Category: Medical Plan Reviewed RAST which revealed multiple environmental allergies, discussed ways to minimize exposures. Reviewed PFT which revealed mild obstructive defect with positive response to bronchodilator. Lung volumes and DLCO WNL. Discussed results suggestive of asthma COPD overlap syndrome. He currently reports good control of respiratory symptoms on Breo and albuterol MDI, encouraged to continue. He is aware if symptoms change to call office. Reviewed home sleep study which revealed AHI 12.5 with no significant nocturnal hypoxemia. We discussed conservative measures such as weight loss and positional changes vs starting CPAP therapy as he continues with nonrestorative sleep and daytime fatigue. He reported previously trailing CPAP therapy with difficulties and is interested alternative therapies. He expressed interest in the Inspire device, will enter referral. All questions were answered and patient is in agreement of plan. Will follow up in 6 months or sooner if needed. Orders: Referrals 2 Plastic Surgery Referral G47.33 - Obstructive sleep apnea (adult) (pediatric) Coding Level of Care Code Est Pt Level 4 (30251) Complex EM visit Add On G2211 Diagnoses Asthma-COPD overlap syndrome J44.89 Environmental allergies Z91.09 Obstructive sleep apnea G47.33
[2025-05-30 10:52] VITALS: BP 110/86; PULSE 81; O2SAT 97; BMI 32.7
--- OUTSIDE RECORDS SUMMARY | 2025-05-30 11:28 | XMS_ITS | Clinical Summary ---
Author Organization [facility] ity Address [address] [place] [address] Care Team Providers Care Professor Of Forestry Name Role Phone Unavailable Primary Care Provider [...]
== END 2025-05-30 11:30 | disposition home or self-care (01) ==
LOC: HO.HPS 10:47
PROVIDERS: PCP Internal Medicine; Visit Provider Nurse Practitioner Family
DX: J44.89 Other specified chronic obstructive pulmonary disease (principal); Z91.09 Other allergy status, other than to drugs and biological substances; G47.33 Obstructive sleep apnea (adult) (pediatric)
CPT/HCPCS: 99214

== ENCOUNTER → 2025-05-30 10:46 | Outpatient (BNVA) | payer OTHER, SELFPAY | PROVIDERS: PCP Internal Medicine; Visit Provider Nurse Practitioner Family | DX: G47.33 Obstructive sleep apnea (adult) (pediatric) (principal); J44.89 Other specified chronic obstructive pulmonary disease; Z91.09 Other allergy status, other than to drugs and biological substances | CPT/HCPCS: 99212 ==

== ENCOUNTER 2025-07-05 14:37 | Outpatient (AMB) | payer OTHER, SELFPAY ==
--- NOTE | 2025-07-05 14:41 | A.OFFVIS_ITS ---
Vital Signs 07/05/25 14:47 Height 5 ft 9 in Weight 220 lb BMI 32.5 Intake Visit Reasons: OV-Lt shoulder pain Intake Note: Eladio is a 44 year old male who presents with complaints of left shoulder pain. He describes his pain as sharp in nature. He has had a cortisone injection given by another provider into his left shoulder in the past. That injection gave him fairly good relief. He has tried Tylenol and ibuprofen which gave him only mild relief. He wishes to hold off on surgery if at all possible. Allergies No Known Allergies Allergy (Verified 07/05/25 14:46) Medication List - Last Reconciled 07/06/25 by Kyle Montez MD albuterol sulfate 90 mcg/actuation 2 puffs inhalation Q6H PRN 30 days fluticasone furoate-vilanterol 100-25 mcg/dose (Breo Ellipta) 1 inh inhalation DAILY ibuprofen 800 mg PO Q6H PRN lidocaine 5% 1 patch topical DAILY omeprazole 20 mg PO DAILY 90 days [facility] Medical History (Updated 05/30/25 @ 12:40 by Jess Rosas NP) Fracture of transverse process of lumbar vertebra Skin lesion Physical exam Class 1 obesity with body mass index (BMI) of 33.0 to 33.9 in adult MARCIANO on CPAP Bradycardia Urine abnormality Moderate asthma Mild asthma Obesity (BMI 30.0-34.9) GERD (gastroesophageal reflux disease) Surgical History No pertinent past surgical history Family History (Updated 09/15/24 @ 11:25 by Amy Whyte MD) Father Colon cancer Mother Diabetes mellitus Essential hypertension Social History Housing: Apartment Alcohol intake: current Alcohol intake frequency: a few times a week Alcohol type: hard liquor Patient Tobacco Use Status: Former Tobacco user Tobacco use type: Cigarette Cigarette Packs Per Day: 2 Years Smoked: 20 years Started at age 9. Quit in 2009. e-Cigarette/Vaping Use: Never Used Second Hand Smoke Exposure: No Substance Use Type: Marijuana service: No Current occupational status: employed Current occupational exposures/hazards: No Cognitive needs: No Hearing needs: No Vision needs: No (may need a referral) Physical Exam Vital Signs: BMI result Body Mass Index 32.5 Const Other: Well-nourished well-developed very friendly male awake alert and oriented x3 in no acute distress Extrem Other: Left shoulder examination shows slightly decreased range of motion when compared to his right shoulder, 4+ out of 5 strength with supraspinatus testing, positive impingement signs, no instability Office Procedures AMB Joint Injection/Aspiration Joint Injection/Aspiration Primary Site: left shoulder Prep: site was prepped using aseptic technique Injected: 40 mg of, DepoMedrol and 1% plain lidocaine Procedure: The patient tolerated the procedure well Coding 78164 - Large joint Procedure code (CPT) selection complete Assessment & Plan Assessment & Plan (1) Impingement syndrome of left shoulder: Code(s): M75.42 - Impingement syndrome of left shoulder Category: Medical Plan Eladio Payton presents with left shoulder pain due to impingement syndrome. The r isks and benefits of a left shoulder cortisone injection were discussed at length with the patient. The patient wished to proceed. He tolerated the injection well. He will continue with his home stretching program. He will contact me prior to his follow-up appointment in 3 months should any questions or concerns arise. Feel free to call me at any time should questions regarding his orthopedic management arise. I spent 21 minutes in reviewing the patient's records and imaging studies, seeing the patient and documenting in the medical record. Orders: Orders AMB Joint Injection/Aspiration 07/05/25 M75.42 - Impingement syndrome of left shoulder Coding Level of Care Code Est Pt Level 3 (35429) Complex EM visit Add On G2211 Diagnoses Impingement syndrome of left shoulder M75.42 CPT Codes Coding - 50143 Large joint: 08874 - Large joint ([id number])
[2025-07-05 14:47] VITALS: BMI 32.5
== END 2025-07-05 15:08 | disposition home or self-care (01) ==
LOC: HO.HOS 14:38
PROVIDERS: PCP Internal Medicine; Visit Provider Orthopaedic Surgery
DX: M75.42 Impingement syndrome of left shoulder (principal)
CPT/HCPCS: 20610; 99213

== ENCOUNTER → 2025-07-05 14:37 | Outpatient (BNVA) | payer OTHER, SELFPAY | PROVIDERS: PCP Internal Medicine; Visit Provider Orthopaedic Surgery | DX: M25.512 Pain in left shoulder (principal); M75.42 Impingement syndrome of left shoulder | CPT/HCPCS: 20610; 99212; J1010; J2003 ==

== ENCOUNTER 2025-07-06 07:59 | Outpatient (AMB) | payer OTHER, SELFPAY ==
--- NOTE | 2025-07-06 08:02 | A.OFFVIS_ITS ---
Intake Visit Reasons: vasectomy consult Intake Note: Patient is present for VASECTOMY CONSULT Urology Medication:NONE Antibiotic Allergy:NONE Blood Thinner:NONE Research Greenhouse Supervisor Required: No Allergies No Known Allergies Allergy (Verified 07/06/25 09:34) Medication List - Last Reconciled 07/06/25 by BOBBI Rivas- albuterol sulfate 90 mcg/actuation 2 puffs inhalation Q6H PRN 30 days fluticasone furoate-vilanterol 100-25 mcg/dose (Breo Ellipta) 1 inh inhalation DAILY ibuprofen 800 mg PO Q6H PRN lidocaine 5% 1 patch topical DAILY omeprazole 20 mg PO DAILY 90 days HPI Comments Details: Eladio is a very pleasant 44-year-old male patient of Dr. Woods. He has a past medical history of his conversation obesity, obstructive sleep apnea on CPAP, bradycardia, asthma, and GERD. He presents to the office today for - vasectomy evaluation Vasectomy evaluation The patient presents for vasectomy consultation.? 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 Patient education has been provided via AUA video, via printed information, risks of failure, recovery time, bruising and potential pain syndrome have been stressed Discussion today focused on the presence of vasectomy and the risks, benefits and alternatives that are available. Vasectomy as intended as a permanent form of control. Printed information and literature was provided to the patient. Overall there is a one in 2500 failure rate. This can occur at any time after vasectomy. Risks were discussed highlighting hematoma, spermatocele, epididymal congestion, development of sperm antibodies, and development of chronic pain estimated between 1-5%. The procedure was reviewed in detail. Anatomical diagrams of the male genitalia were used to explain the location of the vas deferens. The vas deferens will be transected, the proximal end will be cauterized, a metal clip would be applied to separate the 2 vas deferens ends. It was explained the procedure will be done in the office and takes approximately 10-15 minutes. Less common problems that arise with vasectomy include hematoma, bleeding, allergic reaction to anesthetic, epididymal infection, epididymal congestion, scrotal discomfort, spermatic leak, spermatic granuloma and the possibility of antisperm antibodies. He understands these risks and wishes to proceed. Consent was signed at the off ice today. He also understands that it takes 12 weeks for sperm to fully clear the system. He will need to provide a semen sample at 12 weeks and if this is not clear a 2nd sample at 16 weeks. Medical clearance to stop using protection will only be provided if he satisfies published criteria for sperm clearance. [facility] Medical History Fracture of transverse process of lumbar vertebra Skin lesion Physical exam Class 1 obesity with body mass index (BMI) of 33.0 to 33.9 in adult MARCIANO on CPAP Bradycardia Urine abnormality Moderate asthma Mild asthma Obesity (BMI 30.0-34.9) GERD (gastroesophageal reflux disease) Surgical History No pertinent past surgical history Family History (Updated 09/15/24 @ 11:25 by Amy Whyte MD) Father Colon cancer Mother Diabetes mellitus Essential hypertension Social History (Reviewed 05/30/25 @ 10:55 by Teodora Lockhart [facility]) Housing: Apartment Alcohol intake: current Alcohol intake frequency: a few times a week Alcohol type: hard liquor Patient Tobacco Use Status: Former Tobacco user Tobacco use type: Cigarette Cigarette Packs Per Day: 2 Years Smoked: 20 years Started at age 9. Quit in 2009. e-Cigarette/Vaping Use: Never Used Second Hand Smoke Exposure: No Substance Use Type: Marijuana service: No Current occupational status: employed Current occupational exposures/hazards: No Cognitive needs: No Hearing needs: No Vision needs: No (may need a referral) Review of Systems Const All systems reviewed & are unremarkable except as noted in HPI and below Physical Exam Const General: cooperative, comfortable, no acute distress, well developed, alert and awake Orientation/consciousness: patient oriented x3 HEENT Head: Yes normal to inspection, Yes normocephalic and Yes atraumatic Ears: hearing grossly normal bilaterally Eyes General: appearance normal, both eyes and all related structures Neck Neck: Yes normal visual inspection and Yes trachea midline Chest Chest palpation & inspection: normal inspection of the chest Resp Effort & Inspection: normal respiratory effort and able to speak in complete sentences Cardio Rate: regular rate GI Inspection: Yes normal to inspection General: Yes no CVA tenderness Penis: normal penis Meatus: meatus normal Scrotum: scrotum normal Testes: Testes normal Back/Spine/Pelvis Back: no CVA tenderness Skin General skin exam: no rashes or lesions noted Neuro General: patient oriented x3 Extrem General: Yes normal to inspection Psych Appearance: grossly normal and well kempt Mental Status: mental status grossly normal Speech and movement: Normal speech and movement present and Clear speech present Affect: normal affect Attitude: cooperative Thought process: Normal thought process present Thought content: Normal thought content present Insight: Fair insight present (Psych) Judgement: Fair judgement present (Psych) Assessment & Plan Assessment & Plan (1) Vasectomy evaluation: Code(s): Z30.09 - Encounter for other general counseling and advice on contraception Category: Medical (2) Anxiety about health: Code(s): R45.89 - Other symptoms and signs involving emotional state Category: Medical Plan Vasectomy was discussed in detail; risks and benefits All questions were answered Consent obtain We discussed in office semen analysis verses fellows kit Prescriptions provided; we discussed importance of bringing medications to office day of procedure. Will schedule for vasectomy. Follow-up per doctor's orders; or sooner with any issues, concerns, and or questions. Medications: New tramadol bring medication to office day of procedure 50 mg PO Q8H PRN 9 tabs 0RF pain 3 days diazepam (Valium) bring medication to office day of procedure 2 mg PO DAILY 2 tabs 0RF anxiety R45.89 - Other symptoms and signs involving emotional state Patient Instructions: The patient had an opportunity to ask questions regarding the treatment plan. All questions were answered. Physical exam, labs, and imaging were discussed and reviewed in detail. As well as risks, benefits, and discussion of treatment choices. No major barriers to understanding were identified. The patient expressed understanding and agreement with the above treatment plan. The patient was made aware they should contact our office by phone for worsening of their current condition, the appearance of new symptoms, or with any questions or concerns. Compliance is encouraged with any medications and follow up testing that is ordered. It is a privilege to be allowed the opportunity to participate in? your urological care.? Again, if you have any questions or concerns If you have any questions or concerns please do not hesitate to contact me. The office is [phone]. This note is constructed using voice recognition software. While every effort has been made to ensure accuracy trench pipe layer helper errors may have been included. Yours sincerely, BOBBI Rivas-SALOMÓN Coding Level of Care Code New Pt Level 4 (17942) Diagnoses Vasectomy evaluation Z30.09 Anxiety about health R45.89
--- OUTSIDE RECORDS SUMMARY | 2025-07-06 08:05 | XMS_ITS | Clinical Summary ---
Author Organization [facility] ity Address [address] [place] [address] Care Team Providers Care Circulation Assistant Name Role Phone Unavailable Primary Care Provider [...] of 3 - 19+ 3-dose series) 1997 Cholesterol Screening (Lipid Panel) 08/14/2024 Colorectal Cancer Screening: Colonoscopy 08/14/2024 HIV Screening 08/14/2024 Hepatitis C Screening 08/14/2024 Social Influencers of Health Screening 08/14/2024 Depression Screening 10/20/2024 COVID-19 Vaccine (2023-2 5 season) 2025 Influenza Vaccine (#1) 2025 HIB Vaccines Aged [...]
== END 2025-07-06 08:42 | disposition home or self-care (01) ==
LOC: HO.HUSH 08:00
PROVIDERS: PCP Internal Medicine; Visit Provider Nurse Practitioner Family
DX: Z30.09 Encounter for other general counseling and advice on contraception (principal); R45.89 Other symptoms and signs involving emotional state
CPT/HCPCS: 99204

== ENCOUNTER → 2025-07-06 07:59 | Outpatient (BNVA) | payer OTHER, SELFPAY | PROVIDERS: PCP Internal Medicine; Visit Provider Nurse Practitioner Family | DX: Z30.09 Encounter for other general counseling and advice on contraception (principal); R45.89 Other symptoms and signs involving emotional state | CPT/HCPCS: 99202 ==

== ENCOUNTER 2025-09-21 09:28 | Outpatient (AMB) | payer OTHER, SELFPAY ==
--- NOTE | 2025-09-21 09:38 | A.OFFPC_ITS ---
Vital Signs 09/21/25 09:40 Height 5 ft 9 in Weight 215 lb 4 oz BMI 31.8 BP 134/68 Blood Pressure Location Lt brachial Position Sitting Pulse 76 Pulse Source Pulse Oximeter Temp 97.1 F Temp Source Oral Pulse Oximetry (%) 98 Oxygen Delivery Method Room Air Intake Visit Reasons: Annual Exam- PHQ-9 needed Mica Sizer Required: No Accompanied by: Self / Same As Patient Allergies No Known Allergies Allergy (Verified 09/21/25 10:00) Medication List - Last Reconciled 09/21/25 by Amy Whyte MD albuterol sulfate 90 mcg/actuation 2 puffs inhalation Q6H PRN 30 days diazepam (Valium) 2 mg PO DAILY fluticasone furoate-vilanterol 100-25 mcg/dose (Breo Ellipta) 1 inh inhalation DAILY ibuprofen 800 mg PO Q6H PRN lidocaine 5% 1 patch topical DAILY omeprazole 20 mg PO DAILY 90 days tramadol 50 mg PO Q8H PRN 3 days Tobacco use date assessed: 09/21/25 Dental Screening Dental Screen Date: 09/21/25 Did you have a dental visit in the last 12 months?: Yes Was dental information given to patient?: Patient has dentist HPI HPI Comments History of Present Illness Details The patient is a 45 year old individual presenting for an annual physical examination. The patient has no history of surgery. The patient reports smoking 2-3 cigarettes occasionally, having relapsed due to stress and depression. The patient has quit before and is ready to quit again. The patient describes a recent episode of dizziness that occurred while watching a football game. After jumping up, the patient felt as though they would pass out and experienced dizziness for about two hours after sitting down, though the patient did not lose consciousness. The patient has not had a colonoscopy and will be refer again through open access. The patient declined the influenza vaccination during this visit. [facility] Medical History (Updated 09/21/25 @ 10:59 by Amy Whyte MD) Fracture of transverse process of lumbar vertebra Skin lesion Physical exam Class 1 obesity with body mass index (BMI) of 33.0 to 33.9 in adult MARCIANO on CPAP Bradycardia Urine abnormality Moderate asthma Mild asthma Obesity (BMI 30.0-34.9) GERD (gastroesophageal reflux disease) Surgical History No pertinent past surgical history Family History Father Colon cancer Mother Diabetes mellitus Essential hypertension Social History (Updated 09/21/25 @ 10:08 by Amy Whyte MD) Housing: House Alcohol intake: current Alcohol intake frequency: holidays/special occasions only Alcohol type: hard liquor Patient Tobacco Use Status: Current everyday Tobacco user Tobacco use type: Cigarette Cigarettes Per Day: 3 Years Smoked: 20 years Started at age 9. Quit in 2009 and restart 2024 e-Cigarette/Vaping Use: Never Used Second Hand Smoke Exposure: No Substance Use Type: Marijuana service: No Current occupational status: unemployed Current occupational exposures/hazards: No Cognitive needs: No Hearing needs: No Vision needs: No (may need a referral) Questionnaire PHQ-9 Over the last 2 weeks, how often have you been bothered by any of the following problems? 1. Little interest or pleasure in doing things: not at all 2. Feeling down, depressed, or hopeless: several days 3. Trouble falling or staying asleep, or sleeping too much: not at all 4. Feeling tired or having little energy: several days 5. Poor appetite or overeating: several days 6. Feeling bad about yourself - or that you are a failure or have let yourself or your family down: several days 7. Trouble concentrating on things, such as reading the newspaper or watching television: several days 8. Moving or speaking so slowly that other people could have noticed. Or the opposite - being so fidgety or restless that you have been moving around a lot more than usual: not at all 9. Thoughts that you would be better off or of hurting yourself in some way: not at all Total score: 5 Depression Screening Interpretation: Positive Depression Screening Follow-up: Existing condition, Community Mental Health Worker F/U and Follow-up Visit Req uested Depression Screening Done: Yes 14777 - PHQ-9 Billing: Yes Source: Developed by Drs. Robert White, Kandi Gee, Bhavin Arora and colleagues, with an educational jacqueline from [employer]. Thrive Questionnaire Date Thrive assessed: 09/21/25 I am a: Patient What is your living situation today?: I do not have a steady places to live I am temporarily staying with others Within the past 12 months, did the food you bought not last and you didn't have the money to get more?: Never true Within the past 12 months, did you worry whether your food would run out before you got money to buy more?: Never true Do you have trouble paying for medicines?: No Do you have trouble getting transportation to medical appointments?: No Do you have trouble paying your heating and electricity bill?: No Do you have trouble taking care of your child, family member or friend?: No Do you have trouble with day-to-day activities such as bathing, preparing meals, shopping, managing finances, etc.?: No Are you currently unemployed and looking for a job?: Yes Are you interested in more education?: Yes Please select the resources that you would like help with: None Currently or been in a relationship where the following occur: I choose not to answer THRIVE Score: 1 AUDIT C Alcohol Use Questionnaire (AUDIT-C) 1. How often do you have a drink containing alcohol?: Monthly or less 2. How many drinks containing alcohol do you have on a typical day when you are drinking?: 1 or 2 3. How often do you have six or more drinks on one occasion?: Never Total Score: 1 Score Reviewed/Action Taken: No CALIXTO-7 AMB Questionnaire CALIXTO-7 Date CALIXTO - 7 assessed: 09/21/25 Feeling nervous, anxious, or on edge: 0 = Not at all Not being able to stop or control worryin = Not at all Worrying too much about different things: 0 = Not at all Trouble relaxin = Several days Being so restless that it is hard to sit still: 1 = Several days Becoming easily annoyed or irritable: 1 = Several days Feeling afraid as if something awful might happen: 0 = Not at all Total CALIXTO-7 score (0-4 normal; 5-9 mild; 10-14 moderate; 15-21 severe): 3 Source: Developed by Drs. Robert White, Kandi Gee, Bhavin Arora and colleagues, with an educational jacqueline from [employer]. CALIXTO-7 Assessment Billing CALIXTO-7 Assessment Tool: ACLIXTO-7 Assessment 06627 Review of Systems Const All systems reviewed & are unremarkable except as noted in HPI and below Card Denies chest pain at rest, Denies chest pain with activity, Denies edema, Denies irregular heart rhythm, Denies claudication, Denies dyspnea, Denies dyspnea on exertion, Denies orthopnea, Denies paroxysmal nocturnal dyspnea and Denies slow heart rate Resp Denies cough, Denies dyspnea and Denies dyspnea on exertion Physical exam (Primary Care) Vital Signs: Last Vital Signs Temp 97.1 F 09/21/25 09:40 Pulse 76 09/21/25 09:40 BP 134/68 09/21/25 09:40 Pulse Ox 98 09/21/25 09:40 Oxygen Delivery Method Room Air 09/21/25 09:40 BMI result Body Mass Index 31.8 Tobacco/Smoking Status: Tobacco use Status Tobacco use date assessed 09/21/25 09/21/25 09:44 Patient Tobacco Use Status Former Tobacco user 09/21/25 09:39 Tobacco use type Cigarette 09/21/25 09:39 e-Cigarette/Vaping Use Never Used 09/21/25 09:39 PHQ-9: PHQ-9 Score PHQ-9: Total score 5 09/21/25 09:44 Depression Screening Interpretation: Positive Depression Screening Follow-up: Existing condition, Community Mental Health Worker F/U and Follow-up Visit Requested Thrive Assessment: Date of Thrive Assessment Date Thrive assessed 09/21/25 09/21/25 09:44 Currently or been in a relationship where the following occur: I choose not to answer HENMT Head: Yes normal to inspection, Yes normocephalic and Yes atraumatic Ears: external ears normal Eyes General: appearance normal, both eyes and all related structures Eyelids: Yes eyelids normal Conjunctivae: conjunctivae normal Neck Neck: Yes normal visual inspection and Yes supple Resp Effort & Inspection: normal respiratory effort Auscultation: clear to auscultation bilaterally Cardio Jugular venous distension: no JVD Rate: regular rate Rhythm: regular rhythm Heart sounds: S1 normal heart sound present and S2 normal heart sound present GI Inspection: Yes normal to inspection Palpation (GI): Soft to palpation and nontender Auscultation: normal bowel sounds Skin General skin exam: no rashes or lesions noted Neuro General: no focal motor deficits Extrem General: Yes full ROM Psych Appearance: grossly normal Office Procedures Flu Questionnaire Does the patient have a severe egg allergy?: No Does the patient have severe life threatening allergies?: No Does the patient have a fever or illness today?: No Has the patient ever had Guillain-Marshall Syndrome?: No Has the patient ever had any past reaction to a flu shot?: No Immunizations Fluarix [id number] (PF) 45 mcg (15 mcg x 3)/0.5 mL IM syringe Performing Provider: Amy Whyte MD [facility] Documented (not given) by: Joan Resendez CMA on 09/21/25 09:45 Reason Not Given: Patient Refused Coding Level of Care Code Est Pt Prev Care 40-64y(91372) Diagnoses Physical exam Z00.00 Mild recurrent major depression F33.0 Additional Codes PHQ-9 - 65585 - PHQ-9 Billing: Yes ([id number]) CALIXTO-7 Assessment Billing - CALIXTO-7 Assessment Tool: CALIXTO-7 Assessment 76351 ([id number]) Time Spent (min) 30 Assessment & Plan Assessment & Plan (1) Physical exam: Code(s): Z00.00 - Encounter for general adult medical examination without abnormal findings Category: Medical (2) Mild recurrent major depression: Code(s): F33.0 - Major depressive disorder, recurrent, mild Category: Medical Plan Plan 1. Annual Physical Examination The patient presented for an annual physical exam. Health maintenance topics, including cancer screening and tobacco cessation, were discussed. A referral for colonoscopy and an order for blood work will be provided. The patient is due for a screening colonoscopy, as one has never been performed. A referral for a colonoscopy will be placed, and the patient will be contacted for scheduling. 2. Tobacco Use Disorder The patient smokes occasionally and is ready to quit. The [employer] program was recommended for smoking cessation support. 3. Depression The patient reports experiencing some depression. The use of the PHQ-9 questionnaire to assess the severity was discussed, and the patient was offered resources for counseling. 4. Dizziness The patient reported a self-limited episode of dizziness after sudden exertion. Reassurance was provided that this is likely benign and not concerning. Orders: Orders Lipid Panel Today Z00.00 - Encounter for general adult medical examination without abnormal findings Influenza [id number] Immunization Today Z23 - Encounter for immunization Comprehensive [place]. Panel Fast Today Z00.00 - Encounter for general adult medical examination without abnormal findings Referrals Open Access Screening Colonoscopy Referral Z12.12 - Encounter for screening for malignant neoplasm of rectum
[2025-09-21 09:40] VITALS: BP 134/68; PULSE 76; TEMP 36.2; O2SAT 98; BMI 31.8
--- OUTSIDE RECORDS SUMMARY | 2025-09-21 10:22 | XMS_ITS | Clinical Summary ---
Author Organization [facility] [place] [address] Care Team Providers Care Trackless Trolley Driver Name Role Phone Unavailable Primary Care Provider Unavailabl e Social History Tobacco Use Types Packs/Day Years Used Date Smoking Tobacco: Never Assessed Sex and Gender Information Value Date Recorded Sex Assigned at Not on file Legal Sex Male 10:51 AM EST Gender Identity Not on file Sexual Orientation Not on file Plan of Treatment Health Maintenance Due Date Last Done Comments Colorectal Cancer Screening: Colonoscopy 1978 DTaP,Tdap,and Td Vaccines (1 - Tdap) 1997 Hepatitis B Vaccines (1 of 3 - 19+ 3-dose series) 1997 Cholesterol Screening (Lipid Panel) 08/14/2024 HIV Screening 08/14/2024 Hepatitis C Screening 08/14/2024 Social Influencers of Health Screening 08/14/2024 Depression Screening 10/20/2024 COVID-19 Vaccine (1 - 2024-2 6 season) 2025 Influenza Vaccine (#1) 2025 RSV Immunization Adult Patie nts (1 - 1-dose 75+ series) 2053 HIB Vaccines Aged Out No longer eligi [...]
== END 2025-09-21 10:52 | disposition home or self-care (01) ==
LOC: HO.HMCH 09:30
PROVIDERS: PCP Internal Medicine; Visit Provider Internal Medicine
DX: Z00.00 Encounter for general adult medical examination without abnormal findings (principal); F33.0 Major depressive disorder, recurrent, mild; Z23 Encounter for immunization

== ENCOUNTER → 2025-09-21 09:28 | Outpatient (BNVA) | payer OTHER, SELFPAY | PROVIDERS: PCP Internal Medicine; Visit Provider Internal Medicine | DX: Z28.21 Immunization not carried out because of patient refusal (principal); Z00.00 Encounter for general adult medical examination without abnormal findings; F33.0 Major depressive disorder, recurrent, mild | CPT/HCPCS: 90471; 96127; 99396 ==

== ENCOUNTER 2025-09-30 14:43 | Outpatient (AMB) | payer OTHER, SELFPAY ==
--- NOTE | 2025-09-30 15:09 | MHC.OFFVIS ---
Intake Visit Reasons: vasectomy Allergies No Known Allergies Allergy (Verified 10/05/25 08:44) HPI Comments Details: Eladio is a very pleasant 44-year-old male patient of Dr. Woods. He has a past medical history of his conversation obesity, obstructive sleep apnea on CPAP, bradycardia, asthma, and GERD. He presents to the office today for - vasectomy procedure Vasectomy Procedure The patient presents for vasectomy procedure.? 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 [employer] Medical History Fracture of transverse process of lumbar vertebra Skin lesion Physical exam Class 1 obesity with body mass index (BMI) of 33.0 to 33.9 in adult MARCIANO on CPAP Bradycardia Urine abnormality Moderate asthma Mild asthma Obesity (BMI 30.0-34.9) GERD (gastroesophageal reflux disease) Surgical History No pertinent past surgical history Family History Father Colon cancer Mother Diabetes mellitus Essential hypertension Social History Housing: House Alcohol intake: current Alcohol intake frequency: holidays/special occasions only Alcohol type: hard liquor Patient Tobacco Use Status: Current everyday Tobacco user Tobacco use type: Cigarette Cigarettes Per Day: 3 Years Smoked: 20 years Started at age 9. Quit in 2009 and restart 2024 e-Cigarette/Vaping Use: Never Used Second Hand Smoke Exposure: No Substance Use Type: Marijuana service: No Current occupational status: unemployed Current occupational exposures/hazards: No Cognitive needs: No Hearing needs: No Vision needs: No (may need a referral) Review of Systems Const Denies chills and Denies fever(s) Card Reports no additional complaints and Denies syncope Resp Denies cough GI Denies abdominal pain and Denies heartburn Reports as per HPI and Denies change in libido Neuro Denies syncope Psych Denies change in libido Endo Denies change in libido Physical Exam Const General: cooperative, healthy appearing, comfortable and no acute distress Orientation/consciousness: patient oriented x3 HEENT Face and sinus: Yes normal facial exam Mouth: moist mucous membranes Neck Neck: Yes normal visual inspection, Yes full ROM and Yes trachea midline Chest Chest palpation & inspection: normal inspection of the chest Resp Effort & Inspection: normal respiratory effort, able to speak in complete sentences and no respiratory distress GI Inspection: Yes normal to inspection Back/Spine/Pelvis Cervical Spine: normal cervical lordosis Thoracic/Lumbar Spine: thoracic and lumbar spine normal to inspection Skin General skin exam: no rashes or lesions noted Neuro General: patient oriented x3, gait normal, tone normal and moves all extremities Extrem General: Yes normal to inspection and Yes capillary refill normal Office Procedures Vasectomy Details: Preoperative diagnosis: Anxiety regarding Postoperative diagnosis: Anxiety regarding unplanned Procedure: Bilateral vasectomy Informed consent had been completed. Preoperative and postoperative instructions were provided to the patient. The patient has transportation home identified at the completion of the procedure. Anti-anxiolytic prescription medication had been taken after consent verification and all questions answered. A limited amount of pain medication was also provided. The penis was elevated using a rubber band that was attached to the patient's shirt. Both vasa were palpated through the skin using a 3 finger technique and the penoscrotal junction was prepped with Betadine. After Betadine application the left vas was elevated using a 3 finger grasping technique. 1% lidocaine was used to create a subdermal bubble. Further anesthetic was then advanced using the 25-gauge needle along the vasa in a proximal fashion. Approximately 2 minutes were allowed to for local anesthetic uptake. Using the sharp spreading instrument the scrotal skin was spread longitudinally in line with the vasa until the subdermal layer had been divided. The vasa was then elevated from the scrotum using a ring clamp. Care was taken to elevate the superior portion of the vasa by rotating the ring clamp in a caudad direction. The battery powered cautery was used to divide the vasal sheath in a longitudinal direction on the exposed vasa and to strip the vasal sheath from the vasa. The sharp spreading instrument was used to further expose the vas within the vasal sheath. A 2nd narrower ring clamp was placed on the exposed vas and used to lift the vas from the vasal sheath. The cautery was used to divide vasal attachments and allow full exposure of a small loop of vasa. The sharp spreading instrument was then used to create a tunnel under the vasa and spread to allow the blood vessels of the vasa to retract from the vasa. A mosquito clamp was placed on the proximal portion of the vas. The battery-powered cautery was used to make a partial division in the proximal vas and then inserted in order to cauterize the proximal end of the vas. This was then cut and allowed to retract into the vasal sheath. The mosquito was then used to twist the vasa 180 degrees creating a fascial interposition as the proximal portion of the vas retracted in the vasal sheath. Using a 4-0 chromic suture the fascial interposition was sutured closed. The distal portion of the vas was then cut in order to obtain a segment of vasa. An open distal vas is preferred for minimizing postprocedure pain. The vasa were allowed to retract back into the scrotum. A small snap was then used to approximate the skin edges and allow hemostasis without placement of a suture. A similar procedure was repeated on the right side. He tolerated the procedure well. Triple antibiotic was applied. A gauze was applied. An ice pack was applied to assist with minimizing swelling. Postoperative instructions were confirmed. He understands the need to continue to use control methods. A semen sample should be brought for inspection under the microscope in 10-12 weeks. CPT 93783 Informed consent given: Yes Informed consent signed: Yes Time out checklist: patient, procedure, site marked/identified, positioning of patient, supplies available, allergies confirmed and team agrees on procedure Anesthetic used: other Specimens: vas segments not sent to pathology 61518 - Vasectomy Office Meds lidocaine (PF) 10 mg/mL (1 %) injection solution Performing Provider: Luis Dubon MD Performing [facility] [place] [facility] Administered by: Luis Dubon MD on 10/17/25 09:14 Dose Route Admin Location Dispensed Lot Number Expiration Date NDC Bottom Scrubber 2 mL Infiltration 10 mL Total Dispensed Waste 10 mL 0 % Assessment & Plan Assessment & Plan (1) Anxiety about health: Code(s): R45.89 - Other symptoms and signs involving emotional state Category: Medical Plan Three-month follow-up check cystoscopy Orders: Orders AMB Vasectomy 09/30/25 Z30. - Encounter for other general counseling and advice on contraception Medications: New lidocaine (PF) 2 mL Infiltration ONCE 2 mL 0RF Z30. - Encounter for other general counseling and advice on contraception Patient Instructions: This note is constructed using voice recognition software. While every effort has been made to ensure accuracy manager international errors may have been included. Imaging studies, laboratory and physical exam results were discussed and reviewed in detail. No major barriers to patient understanding were identified. An opportunity to ask questions regarding the treatment plan was provided. All questions were answered. The patient expressed understanding and agreement with the above treatment plan. The patient is aware they should contact our office by phone for worsening of their current condition or the appearance of new urologic symptoms. Compliance is encouraged with any medications and followup testing that is ordered. It is a privilege to participate in the urologic care of your patient. If you have any questions or concerns regarding treatment for the above conditions, or other urologic issues, please do not hesitate to contact me. The office telephone contact is [phone]. Sincerely, Dr Luis Dubon MD, [facility] - Urology Compassionate Specialist Care for the Genitourinary System Coding Level of Care Code Procedure Only Diagnoses Anxiety about health R45.89 CPT Codes Office Procedure - CPT: 51336 - Vasectomy ([id number])
--- OUTSIDE RECORDS SUMMARY | 2025-09-30 19:51 | XMS_ITS | Clinical Summary ---
Author Organization [facility] [place] [address] Care Team Providers Care [employer] Jointer Name Role Phone Unavailable Primary Care Provider [...]
== END 2025-09-30 16:25 | disposition home or self-care (01) ==
LOC: HO.HUSH 14:44
PROVIDERS: PCP Internal Medicine; Visit Provider Urology
DX: Z30.2 Encounter for sterilization (principal)
CPT/HCPCS: 55250

== ENCOUNTER → 2025-09-30 14:43 | Outpatient (BNVA) | payer OTHER, SELFPAY | PROVIDERS: PCP Internal Medicine; Visit Provider Urology | DX: R45.89 Other symptoms and signs involving emotional state (principal); Z30.09 Encounter for other general counseling and advice on contraception | CPT/HCPCS: 55250; J2003 ==

== ENCOUNTER 2025-10-05 08:34 | Outpatient (AMB) | payer OTHER, SELFPAY ==
[2025-10-05 08:37] VITALS: BMI 31.7
--- NOTE | 2025-10-05 08:37 | MHC.OFFVIS ---
Vital Signs 10/05/25 08:37 Height 5 ft 9 in Weight 215 lb BMI 31.7 Intake Visit Reasons: OV-Lt shoulder pain Intake Note: Eladio is a 44 year old male who presents with complaints of progressively worsening left shoulder pain and stiffness. He describes his pain as sharp in nature. Most of the pain is along the lateral aspect of his shoulder. The patient's symptoms have gotten worse over the last year in spite of continued non operative treatments. He has had cortisone injections in the past which gave him minimal relief. He has also tried Tylenol, anti-inflammatory medicines, a home exercise program and physical therapy exercises which gave him no relief. At this point the patient's left shoulder pain and stiffness or interfering with his activities of daily living and his ability to sleep well through the night. Allergies No Known Allergies Allergy (Verified 10/05/25 08:44) Medication List - Last Reconciled 10/05/25 by Kyle Montez MD albuterol sulfate 90 mcg/actuation 2 puffs inhalation Q6H PRN 30 days diazepam (Valium) 2 mg PO DAILY fluticasone furoate-vilanterol 100-25 mcg/dose (Breo Ellipta) 1 inh inhalation DAILY ibuprofen 800 mg PO Q6H PRN lidocaine 5% 1 patch topical DAILY omeprazole 20 mg PO DAILY 90 days tramadol 50 mg PO Q8H PRN 3 days PFSH Medical History Fracture of transverse process of lumbar vertebra Skin lesion Physical exam Class 1 obesity with body mass index (BMI) of 33.0 to 33.9 in adult MARCIANO on CPAP Bradycardia Urine abnormality Moderate asthma Mild asthma Obesity (BMI 30.0-34.9) GERD (gastroesophageal reflux disease) Surgical History No pertinent past surgical history Family History Father Colon cancer Mother Diabetes mellitus Essential hypertension Social History Housing: House Alcohol intake: current Alcohol intake frequency: holidays/special occasions only Alcohol type: hard liquor Patient Tobacco Use Status: Current everyday Tobacco user Tobacco use type: Cigarette Cigarettes Per Day: 3 Years Smoked: 20 years Started at age 9. Quit in 2009 and restart 2024 e-Cigarette/Vaping Use: Never Used Second Hand Smoke Exposure: No Substance Use Type: Marijuana service: No Current occupational status: unemployed Current occupational exposures/hazards: No Cognitive needs: No Hearing needs: No Vision needs: No (may need a referral) Physical Exam Vital Signs: BMI result Body Mass Index 31.7 Extrem Other: Left shoulder examination shows decreased range of motion when compared to his right shoulder, 5/5 strength with supraspinatus testing, positive impingement signs, tenderness over his acromioclavicular joint, no instability Results Reviewed Results Reviewed: MRI of the patient's left shoulder show severe acromioclavicular joint narrowing, a type 3 acromion, signal change within the supraspinatus tendon most likely due to adhesive capsulitis Assessment & Plan Assessment & Plan (1) Impingement syndrome of left shoulder: Code(s): M75.42 - Impingement syndrome of left shoulder Category: Medical Plan Mr. Corey Sharma presents with progressively worsening left shoulder pain and stiffness due to impingement syndrome, acromioclavicular joint arthritis and adhesive capsulitis. I had a lengthy discussion with the patient regarding the treatment options. At this point he has failed continued non operative treatments. The risks and benefits of left shoulder surgery were discussed at length with the patient. The patient wishes to proceed with surgery. Surgery will involve left shoulder arthroscopic distal clavicle excision, left shoulder arthroscopic acromioplasty, left shoulder arthroscopic capsular release and left shoulder manipulation under anesthesia. The patient will be scheduled for next available date. He will follow up as instructed. Feel free to call me at any time should questions regarding his orthopedic management arise. I spent 22 minutes in reviewing the patient's records and imaging studies, seeing the patient and documenting in the medical record. Coding Level of Care Code Est Pt Level 3 (67724) Add On Problem Visit Only Diagnoses Impingement syndrome of left shoulder M75.42
--- OUTSIDE RECORDS SUMMARY | 2025-10-05 08:51 | XMS_ITS | Clinical Summary ---
Author Organization [facility] [place] [address] Care Team Providers Care Telemedicine Physician Name Role Phone Unavailable Primary Care Provider [...]
== END 2025-10-05 09:05 | disposition home or self-care (01) ==
LOC: HO.HOS 08:35
PROVIDERS: PCP Internal Medicine; Visit Provider Orthopaedic Surgery
DX: M75.42 Impingement syndrome of left shoulder (principal)
CPT/HCPCS: 99213

== ENCOUNTER → 2025-10-05 08:34 | Outpatient (BNVA) | payer OTHER, SELFPAY | PROVIDERS: PCP Internal Medicine; Visit Provider Orthopaedic Surgery | DX: M75.42 Impingement syndrome of left shoulder (principal) | CPT/HCPCS: 99212 ==

== ENCOUNTER 2025-10-17 10:30 | Outpatient (REF) | payer OTHER, SELFPAY ==
--- NOTE | ~2025-10-17 | XR_ITS ---
EXAMINATION: XR CHEST 2 VIEWS HISTORY: Z01.818 - Encounter for other preprocedural examination COMPARISON: There are no prior studies available for comparison. FINDINGS: PA and lateral views of the chest are submitted. The lungs are expanded and clear. There is no pleural effusion, pneumothorax, or pulmonary vascular congestion. The heart is normal in size. The bones are intact. XR/XR chest 2V IMPRESSION: Clear lungs. Electronically signed by: Robert Curran MD 10/17/2025 03:07 PM [facility]
[2025-10-17 11:48] LABS: Alanine Aminotransferase 40 U/L (0-40); Albumin Level 4.4 g/dL (3.5-5.0); Alkaline Phosphatase 66 U/L (39-117); Anion Gap 11 (12-20); Aspartate Amino Transferase 20 U/L (5-37); Blood Urea Nitrogen 17 mg/dL (9-16); Calcium 8.8 mg/dL (8.4-10.2); Carbon Dioxide 24 mmol/L (22-29); Chloride 112 mmol/L (96-108); Cholesterol 198 mg/dL (<200); Estimated Glomerular Filt Rate > 60; HDL Cholesterol 47 mg/dL (>40); Potassium 3.6 mmol/L (3.3-5.1); Sodium 143 mmol/L (135-145); Total Protein 6.9 g/dL (6.5-8.0); Triglycerides 75 mg/dL (<150)
--- OUTSIDE RECORDS SUMMARY | 2025-10-17 11:59 | XMS_ITS | Clinical Summary ---
Author Organization [facility] Address [address] [place] [address] Phone Care Team Providers Care Flyer Builder Name Role Phone Amy Whyte MD Primary Care Provider [phone] Allergies No known active allergies Medications acetaminophen (TYLENOL) 500 mg tablet Take 2 tablets (1,000 mg total) by mouth every 6 (six) hours if needed for mild pain for up to 10 days. 30 tablet 10/08/2025 10/18/20 25 Active oxyCODONE (ROXICODONE) 5 mg immediate release tablet Take 1 tablet (5 mg total) by mouth every 6 (six) hours if needed for severe pain. Max Daily Amount: 20 mg 7 tablet 10/08/2025 Active levoFLOXacin (LEVAQUIN) 500 mg tablet Take 1 tablet (500 mg total) by mouth 1 (one) time each day for 7 days. 7 tablet 10/08/2025 10/15/20 25 Encounters Date Type Department Care Team Description 10/08/2025 12:48 AM EST - 10/08/2025 1:[address] [facility] Emergency [address] [place] [address] Epididymitis (Primary Dx); S/P vasectomy Discharge Disposition: Home or Self Care from Last 3 Months Medical History Medical History Date Comments Asthma Social History Tobacco Use Types Packs/Day Years Used Date Smoking Tobacco: Never Smokeless Tobacco: Never Tobacco Cessation:Counseling Given: Not Answered Alcohol Use Standard Drinks/Week Comments Never 0 (1 standard drink = 0.6 oz pur e alcohol) Sex and Gender Information Value Date Recorded Sex Assigned at Not on file Legal Sex Male 10:51 AM EST Gender Identity Not on file Sexual Orientation Not on file Last Filed Vital Signs Vital Sign Reading Time Taken Comments Blood Pressure 116/77 10/08/2025 12:03 AM EST Pulse 49 10/08/2025 12:03 AM EST Temperature 36.4 C (97.5 F) 10/08/2025 12:03 AM EST Respiratory Rate 16 10/08/2025 12:03 AM EST Oxygen Saturation 99% 10/08/2025 12:03 AM EST Inhaled Oxygen Concentration - - Weight 97.5 kg (215 lb) 10/07/2025 7:32 PM EST Height 175.3 cm (5' 9 ) 10/07/2025 7:32 PM EST Body Mass Index 31.75 10/07/2025 7:32 PM EST Plan of Treatment Health Maintenance Due Date Last Done Comments Colorectal Cancer Screening: Colonoscopy 1978 Hepatitis B Vaccines (1 of 3 - 19+ 3-dose series) 1997 Pneumococcal Vaccine: Pediatrics (0 to 5 Years) and At-Risk Patients (6 to 49 Years) (1 of 2 - PCV) 1997 Cholesterol Screening (Lipid Panel) 08/14/2024 HIV Screening 08/14/2024 Hepatitis C Screening 08/14/2024 Social Influencers of Health Screening 08/14/2024 Depression Screening 10/20/2024 COVID-19 Vaccine ( - 2024-2 6 season) 2025 Influenza Vaccine (#1) 2025 DTaP,Tdap,and Td Vaccines (3 - Td or Tdap) 01/21/2032 01/20/2022, 05/18/2012 RSV Immunization Adult Patients (1 - 1-dose 75+ series) 2053 HIB [...] to complete this topic RSV Immunization Patients Under 20 months Aged Out No longer eligible b ased on patient's age to complete this topic Varicella Vaccines Aged Out No longer eligible based on patient's age to complete this topic Procedures Procedure Name Priority Date/Time Associated Diagnosis Comments URINALYSIS WITH REFLEX MICROSCOPIC STAT 10/07/2025 8:54 PM EST URINALYSIS WITH REFLEX MICROSCOPIC STAT 10/07/2025 8:54 PM EST CBC WITH AUTO DIFFERENTIAL STAT 10/07/2025 8:50 PM EST BASIC METABOLIC PANEL STAT 10/07/2025 8:50 PM EST CBC AND DIFFERENTIAL STAT 10/07/2025 8:50 PM EST US SCROTUM AND CONTENTS STAT 10/07/2025 8:24 PM EST from Last 3 Months Results * (ABNORMAL) Urinalysis with reflex microscopic (10/07/2025 8:54 PM EST) Specific [place] Urine 1.034(H) 1.003 - 1.030 LAB URINALYSIS - AUTOMATED METHOD 10/07/2025 9:16 PM [facility] pH, Urine 6.0 5.0 - 8.0 pH LAB URINALYSIS - AUTOMATED METHOD 10/07/2025 9:16 PM [facility] Leukocytes, Urine Negative Negative LAB URINALYSIS - AUTOMATED METHOD 10/07/2025 9:16 PM [facility] Nitrite, Urine Negative Negative LAB URINALYSIS - AUTOMATED METHOD 10/07/2025 9:16 PM [facility] Protein, Urine Trace <=Trace mg/dL LAB URINALYSIS - AUTOMATED METHOD 10/07/2025 9:16 PM [facility] Glucose, Urine Negative Negative mg/dL LAB URINALYSIS - AUTOMATED METHOD 10/07/2025 9:16 PM [facility] Ketones, Urine Trace(A) Negative mg/dL LAB URINALYSIS - AUTOMATED METHOD 10/07/2025 9:16 PM [facility] Urobilinogen, Urine 1.0 0.2 - 1.0 mg/dL LAB URINALYSIS - AUTOMATED METHOD 10/07/2025 9:16 PM [facility] Bilirubin, Urine Negative Negative LAB URINALYSIS - AUTOMATED METHOD 10/07/2025 9:16 PM [facility] Blood, Urine Negative Negative LAB URINALYSIS - AUTOMATED METHOD 10/07/2025 9:16 PM [facility] Urine Urine specimen obtained by clean catch procedure / Unknown Non-blood Collection / Unknown 10/07/2025 8:54 PM EST 10/07/2025 9:10 PM EST us [facility] URINE ORDERABLES Final Result [facility] [address] [place] [address], * (ABNORMAL) CBC auto differential (10/07/2025 8:50 PM EST) WBC 8.5 4.8 - 10.8 K/[facility] HEMETOLOGY METHOD 10/07/2025 9:22 PM [facility] RBC 4.50 4.50 - 5.50 M/[facility] HEMETOLOGY METHOD 10/07/2025 9:22 PM [facility] Hemoglobin 13.6 13.5 - 17.5 g/dL LAB HEMETOLOGY METHOD 10/07/2025 9:22 PM [facility] Hematocrit 40.0(L) 42.0 - 54.0 % LAB HEMETOLOGY METHOD 10/07/2025 9:22 PM [facility] MCV 88.3 79.0 - 98.0 FL LAB HEMETOLOGY METHOD 10/07/2025 9:22 PM [facility] MCH 30.0 27.0 - 32.0 pcg LAB HEMETOLOGY METHOD 10/07/2025 9:22 PM [facility] MCHC 34.0 32.0 - 37.0 g/dL LAB HEMETOLOGY METHOD 10/07/2025 9:22 PM [facility] RDW 13.4 11.0 - 15.0 % LAB HEMETOLOGY METHOD 10/07/2025 9:22 PM [facility] Platelets 283 130 - 400 K/mcL LAB HEMETOLOGY METHOD 10/07/2025 9:22 PM [facility] MPV 10.6 7.0 - 11.0 FL LAB HEMETOLOGY METHOD 10/07/2025 9:22 PM [facility] NRBC 0.0 <1.0 % LAB HEMETOLOGY METHOD 10/07/2025 9:22 PM [facility] NRBC Absolute 0.00 <0.10 K/mcL LAB HEMETOLOGY METHOD 10/07/2025 9:22 PM [facility] Neutrophils Relative 50.3 % LAB HEMETOLOGY METHOD 10/07/2025 9:22 PM [facility] Lymphocytes Relative 37.1 % LAB HEMETOLOGY METHOD 10/07/2025 9:22 PM [facility] Monocytes Relative 7.0 % LAB HEMETOLOGY METHOD 10/07/2025 9:22 PM [facility] Eosinophils Relative 4.5 % LAB HEMETOLOGY METHOD 10/07/2025 9:22 PM [facility] Basophils Relative 0.7 % LAB HEMETOLOGY METHOD 10/07/2025 9:22 PM EST [facility] Immature Granulocytes Relative 0.4 % LAB HEMETOLOGY METHOD 10/07/2025 9:22 PM EST [facility] Neutrophils Absolute 4.29 1.50 - 7.00 K/mcL LAB HEMETOLOGY METHOD 10/07/2025 9:22 PM EST [facility] Lymphocytes Absolute 3.16 1.00 - 5.00 K/mcL LAB HEMETOLOGY METHOD 10/07/2025 9:22 PM EST [facility] Monocytes Absolute 0.60 0.20 - 1.00 K/mcL LAB HEMETOLOGY METHOD 10/07/2025 9:22 PM EST [facility] Eosinophils Absolute 0.38 0.00 - 0.50 K/mcL LAB HEMETOLOGY METHOD 10/07/2025 9:22 PM EST [facility] Basophils Absolute 0.06 0.00 - 0.20 K/mcL LAB HEMETOLOGY METHOD 10/07/2025 9:22 PM EST [facility] Immature Granulocytes Absolute 0.03 0.00 - 0.03 K/mcL LAB HEMETOLOGY METHOD 10/07/2025 9:22 PM EST [facility] Blood Venous blood specimen / Unknown Venipuncture / Unknown 10/07/2025 8:50 PM EST 10/07/2025 9:05 PM EST us [facility] BLOOD ORDERABLES Final Result [facility] [address] [place] [address], * Basic metabolic panel (10/07/2025 8:50 PM EST) Sodium 140 133 - 145 mmol/L 10/07/2025 9:31 PM EST [facility] Potassium 3.8 3.5 - 5.5 mmol/L 10/07/2025 9:31 PM [facility] Chloride 106 96 - 110 mmol/L 10/07/2025 9:31 PM [facility] CO2 25 21 - 32 mmol/L 10/07/2025 9:31 PM [facility] Anion Gap 9 3 - 11 10/07/2025 9:31 PM [facility] Glucose 87 70 - 100 mg/dL 10/07/2025 9:31 PM [facility] BUN 17 5 - 25 mg/dL 10/07/2025 9:31 PM [facility] Creatinine 0.93 0.70 - 1.30 mg/dL 10/07/2025 9:31 PM [facility] eGFR 102 >=60 mL/min/1. 73m2 10/07/2025 9:31 PM [facility] Comment:Calculation based on the Chronic Kidney Disease Epidemiology Collaboration (CKD-EPI) equation refit without adjustment for race. BUN/Creatinine Ratio 18.3 10/07/2025 9:31 PM [facility] Calcium 8.7 8.5 - 10.5 mg/dL 10/07/2025 9:31 PM [facility] Blood Venous blood specimen / Unknown Venipuncture / Unknown 10/07/2025 8:50 PM EST 10/07/2025 9:05 PM EST us [facility] BLOOD ORDERABLES Final Result [facility] [address] [place] [address], * US Scrotum and Contents (10/07/2025 8:24 PM EST) Anatomical Region Laterality Modality Body Ultrasound 10/07/2025 9:09 PM EST Impressions 10/07/2025 9:09 PM EST 1. The right epididymis demonstrates somewhat increased vascularity compared to the left, raising possibility of epididymitis. 2. Unremarkable testes. Mild ovijt-oroleds-ehtn-left bilateral hydroceles. This document has been electronically signed by: Jerry Trejo MD on 10/07/2025 21:09:42 Narrative 10/07/2025 9:09 PM EST INDICATION: edema US Scrotum with Doppler Comparison: None provided Findings: Right testicle normal echotexture, 3.8 x 2.9 x 2.9 cm. Left testicle normal echotexture, 3.4 x 2.6 x 2.6 cm. Normal color flow and arterial/venous spectral tracing of both testicles. The right epididymis demonstrates somewhat increased vascularity compared to the left. Mild nrpkk-yjyllyi-aemm-left hydroceles. No varicocele. Procedure Note Jerry Trejo - 10/07/2025 INDICATION: edema US Scrotum with Doppler Comparison: None provided Findings: Right testicle normal echotexture, 3.8 x 2.9 x 2.9 cm. Left testicle normal echotexture, 3.4 x 2.6 x 2.6 cm. Normal color flow and arterial/venous spectral tracing of bothtesticles. The right epididymis demonstrates somewhat increased vascularitycompared to the left. Mild qpggv-lvxzyhw-asra-left hydroceles. No varicocele. IMPRESSION: 1. The right epididymis demonstrates somewhat increased vascularity compared to the left, raising possibility of epididymitis. 2. Unremarkable testes. Mild jhxnh-vyjurmm-akji-left bilateralhydroceles. This document has been electronically signed by: Jerry Trejo MD on 10/07/2025 21:09:42 us [facility] PROCEDURES Final Res ult from Last 3 Months Insurance [facility] Care Teams Flyer Builder Relationship Specialty Start Date End Date Amy Whyte MD [address] [place] [address] PCP - General Internal Medicine 10/07/25
--- NOTE | 2025-10-17 14:14 | ECG_ITS ---
Test Reason : preop Blood Pressure : */* mmHG Vent. Rate : 62 BPM Atrial Rate : 62 BPM P-R Int : 164 ms QRS Dur : 92 ms QT Int : 382 ms P-R-T Axes : 42 69 36 degrees QTcB Int : 387 ms Normal sinus rhythm Normal ECG No previous ECGs available Referred By: Sofia Cade Electronically Signed By: SPARKLE BURGOS
[2025-10-17 14:59] LABS: Hematocrit 42.8 % (42.0-52.0); Hemoglobin 14.2 g/dl (14.0-18.0); Mean Corpuscular HGB Conc 33.2 g/dl (31.0-36.0); Mean Corpuscular Hemoglobin 29.0 pg (27.0-33.0); Mean Corpuscular Volume 87.3 fL (80.0-98.0); NRBC Abs Auto 0.000 X10*3/uL (0.0-0.012); NRBC Pct Auto 0.0 /100WBC (0.0-0.2); Platelet Count 275 X10*3/uL (160-400); Red Blood Count 4.90 X10*6/uL (4.60-5.80); White Blood Count 7.3 X10*3/uL (4.8-10.8)
[2025-10-17 15:20] LABS: Resp Syncy Virus RNA Qual PCR NEGATIVE (Negative); SARS COV2 PCR INHOUSE NEGATIVE (Negative)
== END 2025-10-17 10:31 | disposition home or self-care (01) ==
LOC: HO.LAB 10:30
PROVIDERS: Absent Provider Internal Medicine; PCP Internal Medicine; Visit Provider Internal Medicine
DX: Z00.00 Encounter for general adult medical examination without abnormal findings (principal); Z01.818 Encounter for other preprocedural examination; R09.89 Other specified symptoms and signs involving the circulatory and respiratory systems
CPT/HCPCS: 36415; 71046; 80053; 80061; 85027; 87637; 93005

== ENCOUNTER 2025-10-17 13:22 | Outpatient (AMB) | payer OTHER, SELFPAY ==
--- NOTE | 2025-10-17 13:27 | A.OFFPC_ITS ---
Vital Signs 10/17/25 13:30 Height 5 ft 9 in Weight 216 lb 2 oz BMI 31.9 BP 100/62 Blood Pressure Location Lt brachial Position Sitting Pulse 67 Pulse Source Pulse Oximeter Temp 97.5 F Temp Source Temporal Artery Scan Pulse Oximetry (%) 97 Oxygen Delivery Method Room Air Intake Visit Reasons: Lt Shoulder Arthroscopy under General 10/31 Intake Note: Patient is here for a Pre-op for Lt Shoulder Arthroscopy scheduled with [facility] on 10/31/24. Staff Research Associate Required: No Performance Improvement Coordinator: Not Required per policy Accompanied by: Self / Same As Patient Allergies No Known Allergies Allergy (Verified 10/17/25 13:30) Medication List - Last Reconciled 10/17/25 by Sofia Cade MD albuterol sulfate 90 mcg/actuation 2 puffs inhalation Q6H PRN 30 days diazepam (Valium) 2 mg PO DAILY fluticasone furoate-vilanterol 100-25 mcg/dose (Breo Ellipta) 1 inh inhalation DAILY ibuprofen 800 mg PO Q6H PRN lidocaine 5% 1 patch topical DAILY omeprazole 20 mg PO DAILY 90 days tramadol 50 mg PO Q8H PRN 3 days Tobacco use date assessed: 10/17/25 Dental Screening Dental Screen Date: 09/21/25 HPI HPI Comments History of Present Illness Details The patient is a 45 year old male presenting for pre-operative clearance for a planned left shoulder surgery. He was seen by orthopedics on October 05 and diagnosed with progressively worsening left shoulder pain and stiffness secondary to impingement syndrome, acromioclavicular joint arthritis, and adhesive capsulitis. His pain is notably worse at nighttime when trying to relax and sleep, and it prevents him from working out. He is scheduled for a left shoulder arthroscopy involving acromioplasty, capsular release, manipulation under anesthesia, and distal clavicle excision. His past medical history is significant for asthma, which is managed with Breo Ellipta, and his breathing is reportedly better. He also uses an albuterol inhaler and takes omeprazole 20 mg for acid reflux. He denies any history of heart or kidney problems. He was prescribed Valium for a prior vasectomy but reports never using it, and he does not use tramadol. On the day of the visit, he reported feeling as if he is having flu like symptoms with nasal and congestion that started today, for which he is using home remedy teas. He denies any cough, fever or chills. [facility] Medical History (Updated 10/17/25 @ 14:48 by Sofia Cade MD) Fracture of transverse process of lumbar vertebra Skin lesion Physical exam Class 1 obesity with body mass index (BMI) of 33.0 to 33.9 in adult MARCIANO on CPAP Bradycardia Urine abnormality Moderate asthma Mild asthma Obesity (BMI 30.0-34.9) GERD (gastroesophageal reflux disease) Surgical History (Updated 10/17/25 @ 13:35 by SYEDA Bardales) History of vasectomy Family History Father Colon cancer Mother Diabetes mellitus Essential hypertension Social History (Updated 10/17/25 @ 13:35 by SYEDA Bardales) Housing: House Alcohol intake: current Alcohol intake frequency: holidays/special occasions only Alcohol type: hard liquor Patient Tobacco Use Status: Former Tobacco user (10/08/25) Tobacco use type: Cigarette Cigarette Packs Per Day: 0.25 Cigarettes Per Day: 3 Years Smoked: 20 years Started at age 9. Quit in 2009 and restart 2024 e-Cigarette/Vaping Use: Never Used Second Hand Smoke Exposure: Yes Substance Use Type: Marijuana service: No Current occupational status: unemployed Current occupational exposures/hazards: No Cognitive needs: No Hearing needs: No Vision needs: No (may need a referral) Questionnaire Thrive Questionnaire Date Thrive assessed: 09/21/25 I am a: Patient What is your living situation today?: I do not have a steady places to live I am temporarily staying with others Within the past 12 months, did the food you bought not last and you didn't have the money to get more?: Never true Within the past 12 months, did you worry whether your food would run out before you got money to buy more?: Never true Do you have trouble paying for medicines?: No Do you have trouble getting transportation to medical appointments?: No Do you have trouble paying your heating and electricity bill?: No Do you have trouble taking care of your child, family member or friend?: No Do you have trouble with day-to-day activities such as bathing, preparing meals, shopping, managing finances, etc.?: No Are you currently unemployed and looking for a job?: Yes Are you interested in more education?: Yes Currently or been in a relationship where the following occur: I choose not to answer THRIVE Score: 1 CALIXTO-7 AMB Questionnaire CALIXTO-7 Date CALIXTO - 7 assessed: 09/21/25 Source: Developed by Drs. Robert White, Kandi Gee, Bhavin Arora and colleagues, with an educational jacqueline from [employer]. Review of Systems Const Details: As per HPI. Physical exam (Primary Care) Vital Signs: Last Vital Signs Temp 97.5 F 10/17/25 13:30 Pulse 67 10/17/25 13:30 BP 100/62 10/17/25 13:30 Pulse Ox 97 10/17/25 13:30 Oxygen Delivery Method Room Air 10/17/25 13:30 BMI result Body Mass Index 31.9 Tobacco/Smoking Status: Tobacco use Status Tobacco use date assessed 10/17/25 10/17/25 13:33 Patient Tobacco Use Status Former Tobacco user (10/08/ 10/17/25 13:36 ) Tobacco use type Cigarette 10/17/25 13:35 e-Cigarette/Vaping Use Never Used 10/17/25 13:35 Thrive Assessment: Date of Thrive Assessment Date Thrive assessed 09/21/25 10/17/25 13:33 Currently or been in a relationship where the following occur: I choose not to answer Const Other: Pertinent findings are in BOLD GENERAL APPEARANCE NAD, activity normal for age, well developed/ well nourished, no cyanosis, pallor, or diaphoresis. EYES lids/conjunctiva normal. EARS/NOSE/THROAT Mucous membranes moist, nares normal, lips/teeth normal uvula midline without oral pharyngeal erythema, exudate or swelling TMs normal bilaterally. No lymphangitis/lymphedema. HEAD/NECK normocephalic atraumatic, no facial trauma, neck is supple. RESPIRATORY respiratory effort normal, speaks in full sentences, no tripod position, no accessory muscle use. Lungs clear to auscultation without rhonchi, wheezes, rales CARDIAC Regular rate and rhythm, no edema. ABDOMINAL Soft, ND/NT. No evidence of fluid wave. No pulsatile masses on exam, rebound tenderness, Styles sign or pain over Mcburney's point. MUSCLES/EXTREMITIES No abnormal range of motion, no swelling. SKIN Warm, pink and dry. No rashes, dermatoses, petechiae or lesions. NEUROLOGICAL Speech is clear and appropriate. Normal level of consciousness. Gait and coordination are normal. 5/5 strength in all extremities. PSYCH Normal mood and affect. Judgement/competence is appropriate Coding Level of Care Code Est Pt Level 4 (89184) Diagnoses Pre-op evaluation Z01.818 Upper respiratory disease J39.9 Impingement syndrome of left shoulder M75.42 Time Spent (min) 25 Assessment & Plan Assessment & Plan (1) Pre-op evaluation: Comment: Left shoulder arthroscopy Code(s): Z01.818 - Encounter for other preprocedural examination Category: Medical Plan: - The patient is a healthy 45-year-old male requiring pre-operative clearance for left shoulder surgery. - A CBC, chest x-ray, and EKG have been ordered. - A CMP was completed this morning for a separate upcoming procedure. - The patient was advised he could complete the blood draw at his pre-admission testing appointment tomorrow to avoid an extra trip. - A post-operative follow-up visit was scheduled for November 20. (2) Upper respiratory disease: Code(s): J39.9 - Disease of upper respiratory tract, unspecified Category: Medical Plan: - The patient reports new onset of congestion today. - A flu/RSV/COVID-19 swab will be performed to rule out viral infection. - Advised symptomatic care including home remedies, rest, hydration, and zocn-meb-hapvvkq medications like ibuprofen or Tylenol. - Discussed flu vaccination, advising him to get it after recovery if he tests negative for influenza. (3) Impingement syndrome of left shoulder: Code(s): M75.42 - Impingement syndrome of left shoulder Category: Medical Plan: - The patient has progressive left shoulder pain and stiffness due to impingement syndrome, AC joint arthritis, and adhesive capsulitis, as diagnosed by orthopedics. - He is not yet cleared to proceed with the scheduled arthroscopic surgery, which includes acromioplasty, capsular release, manipulation under anesthesia, and distal clavicle excision, pending pre-operative test results. - The patient will follow up with his surgeons post-operatively. Plan I informed the patient that for his pre-operative clearance, we would need to order a CBC to complete his blood work, in addition to an EKG and a chest x-ray. Regarding his new onset of congestion, I explained that we would perform a flu and COVID-19 swab today to rule out an acute infection. I advised symptomatic care with rest, hydration, and home remedies. We discussed that if his flu test is negative, he should get the flu shot after he recovers. I confirmed that from my perspective, he is cleared for his scheduled shoulder surgery, pending the results of the ordered tests. We scheduled a postoperative follow-up visit for November 20. Orders: Orders Complete Blood Count no Diff Today Z01.818 - Encounter for other preprocedural examination ECG 12 lead EKG Today Z01.818 - Encounter for other preprocedural examination SARS-CoV2/FLU/RSV Today R09.89 - Other specified symptoms and signs involving the circulatory and respiratory systems XR chest 2V Today Z01.818 - Encounter for other preprocedural examination
[2025-10-17 13:30] VITALS: BP 100/62; PULSE 67; TEMP 36.4; O2SAT 97; BMI 31.9
== END 2025-10-17 15:08 | disposition home or self-care (01) ==
LOC: HO.HMCH 13:23
PROVIDERS: PCP Internal Medicine; Visit Provider Internal Medicine
DX: Z01.818 Encounter for other preprocedural examination (principal); J39.9 Disease of upper respiratory tract, unspecified; M75.42 Impingement syndrome of left shoulder

== ENCOUNTER → 2025-10-17 14:14 | Outpatient (BNV) | payer OTHER, SELFPAY | PROVIDERS: Absent Provider Internal Medicine; PCP Internal Medicine; Visit Provider Internal Medicine | DX: Z01.818 Encounter for other preprocedural examination (principal) | CPT/HCPCS: 93010 ==

== ENCOUNTER → 2025-10-17 14:38 | Outpatient (BNV) | payer OTHER, SELFPAY | PROVIDERS: Absent Provider Internal Medicine; PCP Internal Medicine; Visit Provider Radiology Diagnostic Radiology | DX: Z01.818 Encounter for other preprocedural examination (principal) | CPT/HCPCS: 71046 ==